=== PATIENT | female | born 1935 | race Caucasian/White ===

== ENCOUNTER → 2017-12-12 09:30 | Outpatient (CLI) | payer MEDICARE, OTHER, SELFPAY ==
--- NOTE | 2017-12-12 09:33 | BI_ITS ---
MAMMOGRAPHY - BILATERAL SCREENING REASON FOR EXAM: Female, 82 years old. Routine annual screening examination. PERTINENT HISTORY: Personal history of breast cancer. Prior right lumpectomy and radiation treatment. Grandmother with breast cancer. TECHNIQUE: Digital bilateral breast noe (3D mammographic acquisition) in the CC and MLO projections. 2-D mediolateral oblique (MLO) and craniocaudad (CC) views of both breasts were obtained. CAD: Full Field Digital Mammography with Computer Added Detection was performed. COMPARISON: Comparison is made with prior outside examination dated October 12, 2014. FINDINGS: Breast Composition: The breasts are heterogeneously dense, which may obscure small masses. There are no dominant masses or suspicious calcifications. Stable secretory calcifications. No other significant abnormalities are identified. There has been no significant change since the prior study. BI/SCREENING MAMM (CAD), BILAT IMPRESSION: Stable bilateral screening mammogram. Yearly follow-up mammogram recommended. (A) ASSESSMENT CATEGORY: BIRADS Category 2: Benign. A letter regarding these results will be sent to the patient by the facility within 30 days. Approximately 10% of breast cancers are not detected by mammography. A normal mammogram should not delay biopsy of a clinically suspicious abnormality. [id number] Electronically Signed: Sea Joshua MD at 14:47 EDT Tel [phone], Service support ,
--- NOTE | 2017-12-12 09:33 | BD_ITS ---
STUDY: DUAL ENERGY X-RAY ABSORPTIOMETRY / DXA REASON FOR EXAM: Female, 82 years old. The patient is postmenopausal. Loss of height. TECHNIQUE: Bone Mineral Density (BMD) measurements of lumbar spine and bilateral hips were obtained. COMPARISON: Comparison is made with prior examination dated February 02, 2015. FINDINGS: Lumbar Spine (L1-L4): g/cm2 (1.387) / T-score (1.9) / Z-score (3.7) Findings are suggestive of normal bone density with a low fracture risk. Increased thoracic kyphosis. Left Femur Total: g/cm2 (0.832) / T-score (-1.4) / Z-score (0.7) Left Femoral Neck: g/cm2 (0.746) / T-score (-2.1) / Z-score (0.1) Right Femur Total: g/cm2 (0.785) / T-score (-1.8) / Z-score (0.3) Right Femoral Neck: g/cm2 (0.778) / T-score (-1.9) / Z-score (0.3) The T-Scores on the most recent prior examination were: Lumbar Spine (L1-L4): There has been worsening of bone density since the previous examination. Left Femur Total: which represents a worsening of 2.8%. Right Femur Total: which represents a worsening of 5.5%. BD/Dexa Bone Density Study IMPRESSION: The patient is considered osteopenic as outlined below according to World Eliot Organization (WHO) criteria with a moderate fracture risk. There has been worsening of bone density since the previous examination. Reference Information: The T-score is the number of standard deviations above or below the standard which is normal for young adults at their peak bone mineral density. The World Health Organization (WHO) interprets the T-scores as follows: Above -1 Normal bone density Between -1 and -2.5 Osteopenia Equal to / or below -2.5 Osteoporosis As a practical clinical guideline, osteopenia may be graded as follows: Mild -1 through -1.5 Moderate -1.6 through -2.0 Severe -2.1 through -2.4 The Z-score is the number of standard deviations above or below age-matched controls. A Z-score of less than -1.5 would be considered abnormal. References: 1. NIH Osteoporosis and Related Bone Diseases http://www.osteo.org 2. International Society for Clinical Densitometry http://www.iscd.org 3. National Osteoporosis Foundation http://www.nof.org Electronically Signed: Sea Joshua MD at 9:08 EDT Tel [phone], Service support ,
== END ==
PROVIDERS: Family Provider Nurse Practitioner; PCP Nurse Practitioner; Referring Provider Nurse Practitioner; Visit Provider Nurse Practitioner
DX: Z12.31 Encounter for screening mammogram for malignant neoplasm of breast (principal); Z78.0 Asymptomatic menopausal state; M85.80 Other specified disorders of bone density and structure, unspecified site
CPT/HCPCS: 77063; 77067; 77080

== ENCOUNTER → 2018-05-15 11:04 | Outpatient (CLI) | payer MEDICARE, OTHER, SELFPAY ==
--- NOTE | 2018-05-15 11:09 | RAD_ITS ---
STUDY: X-RAY CHEST REASON FOR EXAM: Female, 82 years old. Cough. TECHNIQUE: PA and lateral views of the chest. COMPARISON: None. FINDINGS: The lungs are clear and expanded. There is no demonstrated pleural abnormality. There is borderline cardiomegaly. Normal mediastinum and tay. Normal visualized pulmonary arteries. There is atherosclerotic calcification of the aortic arch with tortuosity. There are diffuse degenerative changes of the visualized thoracic spine. Minimal dextroscoliosis. Normal visualized ribs, clavicles, and shoulders. There is no demonstrated abnormality of the visualized soft tissue structures of the upper abdomen. RAD/Chest PA and Lateral IMPRESSION: No acute abnormality is seen. Electronically Signed: Sea Joshua, at 12:26 EDT , Service support ,
== END ==
PROVIDERS: Family Provider Nurse Practitioner; PCP Nurse Practitioner; Referring Provider Nurse Practitioner; Visit Provider Nurse Practitioner
DX: R05 Cough (principal)
CPT/HCPCS: 71046

== ENCOUNTER → 2019-01-03 13:41 | Outpatient (CLI) | payer MEDICARE, OTHER, SELFPAY ==
--- NOTE | 2019-01-03 13:48 | RAD_ITS ---
STUDY: X-RAY - RIGHT KNEE REASON FOR EXAM: Female, 83 years old. Knee pain following a fall. TECHNIQUE: 4 view(s) of the knee. COMPARISON: None. FINDINGS: Normal visualized distal femur. Normal visualized proximal tibia and fibula. Normal proximal tibiofibular articulation. The patient is status post total knee replacement. There is good alignment. Small joint effusion. Prepatellar soft tissue swelling. RAD/Knee 4 or More Views IMPRESSION: Status post total knee replacement. There is good alignment. Joint effusion and soft tissue swelling. Electronically Signed: Sea Joshua, at 14:13 EST , Service support ,
--- NOTE | 2019-01-03 13:48 | RAD_ITS ---
STUDY: X-RAY - RIGHT ANKLE REASON FOR EXAM: Female, 83 years old. Lateral ankle swelling and pain following a fall. TECHNIQUE: 3 view(s) of the ankle. COMPARISON: None. FINDINGS: Normal visualized distal tibia and fibula. Normal medial and lateral malleoli. Normal tibiotalar articulation and ankle mortise. Plantar spur. The visualized subtalar, talonavicular, calcaneocuboid and tarsal articulations are normal. Lateral soft tissue swelling. RAD/Ankle min 3 Views IMPRESSION: Soft tissue swelling. Electronically Signed: Sea Joshua, at 14:14 EST , Service support ,
== END ==
PROVIDERS: Family Provider Nurse Practitioner; PCP Nurse Practitioner; Referring Provider Nurse Practitioner; Visit Provider Nurse Practitioner
DX: M25.561 Pain in right knee (principal)
CPT/HCPCS: 73564; 73610

== ENCOUNTER → 2019-03-07 15:20 | Outpatient (CLI) | payer MEDICARE, OTHER, SELFPAY ==
[2019-03-07 15:45] LABS: BNP,B-Type NATRIURETIC PEPTIDE 217.1 pg/mL (0-100)
== END ==
PROVIDERS: PCP Nurse Practitioner; Referring Provider Nurse Practitioner; Visit Provider Nurse Practitioner
DX: I51.7 Cardiomegaly (principal); R60.9 Edema, unspecified
CPT/HCPCS: 83880

== ENCOUNTER 2024-02-07 14:46 | Inpatient (IN) | payer MEDICARE, SELFPAY ==
[2024-02-07 15:08] VITALS: BP 162/80; PULSE 72; RESP 18; TEMP 36.6; O2SAT 95
[2024-02-07 15:17] VITALS: BMI 27.1
--- NOTE | 2024-02-07 16:30 | HP.PCM_ITS ---
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 Family reported that she had been out of Eliquis for 7 to 10 days because she had not filled her prescription. NIHSS was 12 at admission and CTA showed a left MCA M1 occlusion. She was given TNK in the emergency department and then transferred to [facility] where she underwent a thrombectomy per interventional neurology. NIHSS at presentation to [facility] was 7. CT scan of the head on 02/01/2024 showed focal areas of hyperintensity seen measuring up to 1.9 x 1.3 x 1.6 cm in the caudate head 2.1 x 1.1 x 2.2 cm in the lentiform nucleus. There was mild surrounding vasogenic edema concerning for intraparenchymal hemorrhage. There is no significant midline shift. Echocardiogram showed a normal-sized left ventricle with mild septal thickening. Findings were consistent with mild asymmetric hypertrophy. EF was 69% and wall motion abnormality was normal. Right ventricle was normal in size and had normal systolic function. There was mild to moderate aortic valve regurgitation with no stenosis. There was mild to moderate mitral regurgitation with no stenosis. There was mild tricuspid regurgitation with a elevated right-sided systolic pressure of 43. The left atrium was moderately dilated and the right atrium was mildly dilated. CT scan of the head on 02/02/2024 showed marginally increased intraparenchymal hemorrhages of the left frontal lobe with surrounding edema. Repeat CT 1 day later showed a stable to marginally decreased intraparenchymal hemorrhage in the left frontal lobe. Sodium dropped to 127 during her admission at [facility] and nephrology was consulted. Right-sided weakness got worse with the drop in sodium. Cerebral edema increased. She was given a 500 cc bolus of 3% hypertonic sodium chloride and started on a normal saline infusion at 75 cc/h following the 3% saline bolus. 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 She was then placed on a 1500 cc fluid restriction. Sodium continued to be low and on 02/05/2024 the fluid restriction was decreased to 1200 cc daily. She was also started on salt tablets 1 g p.o. 3 times daily. Lab on 02/06/2024 showed a hemoglobin of 11.4, normal platelets. Sodium was 129 and nursing tells me that today the sodium was 135. Creatinine on 02/06/2024 was stable at 0.69 with a BUN of 22. Male who was transferred to the acute inpatient rehab unit at [facility] on 02/07/2024 for 3 hours of therapy daily to restore function/independence at or near her level prior to the recent embolic stroke. After reviewing the notes we received from [facility] the Eliquis is to be resumed 1 month after the stroke, 03/02/2024. She came to us on Keflex and nursing reported that it was for a swollen right hand. There is no mention of cellulitis in the notes. No family is present in the room when I am speaking with her. Hx is limited due to severe expressive aphasia. [facility] Medical History Osteoarthritis Atrial enlargement, bilateral GERD (gastroesophageal reflux disease) Hyperlipidemia HTN (hypertension) History of breast cancer in female Chronic anticoagulation Atrial fibrillation Home Medications ?Medication ?Instructions ?Recorded ?Last Taken ?Type aspirin 81 mg chewable tablet 81 mg PO DAILY Heart health 02/07/24 Unknown History atenolol 25 mg tablet 25 mg PO BID BP 02/07/24 Unknown History atorvastatin 40 mg tablet 40 mg PO DAILY Cholestrol 02/07/24 02/07/24 History cephalexin 500 mg capsule 500 mg PO Q8H Antibiotic 02/07/24 02/07/24 History diltiazem HCl 60 mg tablet 60 mg PO Q6H BP 02/07/24 02/07/24 12:10 History (Cardizem) losartan 50 mg tablet (Cozaar) 50 mg PO DAILY BP 02/07/24 02/07/24 History pantoprazole 40 mg tablet,delayed 40 mg PO DAILY GERD 02/07/24 02/07/24 History release Allergy/AdvReac Type Severity Reaction Status Date / Time docetaxel AdvReac Severe Severe Verified 02/07/24 16:50 body spasms and rash lisinopril AdvReac Mild cough Verified 02/07/24 16:50 Family History unable to obtain unable to obtain (Will discuss with family when available) Surgical History unable to obtain unable to obtain Social History household members: family and other details: Her daughter lives lives with her. number of children: 6 Smoking Status: Never smoker alcohol intake: never ROS ROS Narrative Review of systems is severely limited by severe aphasia. She denied having pain. She also denies shortness of breath, headache, lightheadedness, abdominal pain, dysuria and nausea. Appetite is decreased and she tried to tell me why and then just got frustrated. Review of Systems ROS Unobtainable: due to mental status Vital Signs Vital Signs Vital Signs: Weight Weight: 162 lb 12.8 oz Body Mass Index (BMI) 27.1 Indicators for Scoring Admitted with or Primary Diagnosis of CVA/Stroke: Yes Hx of CVA/Stroke: Yes Modified Tunde Score MRS Score at time of Evaluation: 4-Moderate/severe disability NIHSS NIHSS 1a. Level of Consciousness: Alert; keenly responsive 1b. LOC Questions: Answers one question correctly. (Got that it was January but told me that she is 41) 1c. LOC Commands: Performs both tasks correctly. 2. Best Gaze: Normal 3. Visual: No visual loss 4. Facial Palsy: Minor paralysis (flattened nasolabial fold, asymmetry on smiling) (very mild R facial droop) 5a. Left Arm: No drift; arm holds 90 (or 45) degrees for full 10 seconds 5b. Right Arm: No drift; arm holds 90 (or 45) degrees for full 10 seconds 6a. Left Leg: No drift; leg holds 30-degree position for full 5 seconds 6b. Right Leg: No drift; leg holds 30-degree position for full 5 seconds 7. Limb Ataxia: Absent 8. Sensory: [id number] sensory loss; 9. Best Language: Severe aphasia; 10. Dysarthria: [id number] dysarthria; 11. Extinction and Inattention: No abnormality Total: 6 Stroke Questions Stroke Team Activated: No Physical Exam Const alert Constitutional Narrative: She is oriented to person. She cannot tell me where she is or what year it is. She initially told me it was January but then said February and December later on in the interview. She thinks she is still in [place]. She seems frustrated at not being able to say what she wants to say. General Appearance: cooperative HEENT normocephalic and head/scalp atraumatic HEENT Narrative: Very mild right facial droop. Eyes PERRL, EOMs intact bilaterally, conjunctivae normal and no scleral icterus Eyes Narrative: No discharge from the eyes and no mattering of the eyelashes. No visual field cuts. Neck supple, No nodes and no carotid bruits General: trachea midline Chest Chest: symmetrical chest wall rise Resp normal respiratory effort, normal air movement, no use of accessory muscles and clear to auscultation bilaterally Resp Narrative: Not tachypneic and respiration is not labored. Effort and Inspection: symmetric chest movement Cardio no gallops Cardio Narrative: Irregular irregular rhythm. Widely split S1 but physiologic. No murmur detected. No rub. GI normal to inspection, nondistended, normoactive bowel sounds, soft to palpation and non-tender GI Narrative: No guarding with palpation. No abdominal bruits. Extremity no calf tenderness and no pedal edema Extremity Narrative: No clubbing and no cyanosis. There appears to be some bruising on the dorsum of the right hand but there is no opening in the skin, no discharge and no increased warmth to touch when compared to the left hand. She does have arthritic changes of both hands. No peripheral edema. Skin no jaundice and no mottling Skin Narrative: Skin is very dry. No rashes. Denies pruritus. There is some fairly extensive bruising of the right groin secondary to interventional radiology performing thrombectomy. She denies pain in the right groin. No hematoma. Neuro Neuro Narrative: She is oriented to person. Pupils are equal and reactive to light and accommodation. Extraocular muscles are intact. She was able to tell me initially that it was January but then she said February and December. She cannot tell me the year. When I asked her the year she keeps telling me different months. She cannot tell me where she is. She has a very mild right facial droop. No visual field cuts. She has no drift with any of her extremities. There is no ataxia. No tactile or visual extinction. She was able to name 2 objects but could not name the other 4. She was able to tell me a little of what was going on in the picture I showed her. She was able to say a few of the words I showed her but could not say the others. She has dysarthria but was able to say mama and tiptop fairly clearly. She was able to read a few of the sentences and not the others. When checking sensation she felt me touch her with a pin but, was unable to tell me if 1 side felt sharper than the other. Psych cooperative Psych Narrative: Seems frustrated that she cannot get her words out. She was cooperative and engaged in interacting with me. She was not restless or fidgety. Results Lab / Micro Data 02/08/24 04:44 02/08/24 04:44 Assessment & Plan Assessment/Plan (1) Debility: (2) Embolic stroke: QUALIFIERS: Precerebral and cerebral artery: middle cerebral artery Laterality of affected vessel: left Qualified Code(s): I63.412 - Cerebral infarction due to embolism of left middle cerebral artery (3) History of thrombectomy: (4) Severe aphasia: (5) Dysarthria: (6) Atrial fibrillation: QUALIFIERS: Atrial fibrillation type: longstanding persistent Q ualified Code(s): I48.11 - Longstanding persistent atrial fibrillation (7) Chronic anticoagulation: (8) Noncompliance with medication regimen: PLAN: Noncompliant with Eliquis (9) HTN (hypertension): QUALIFIERS: Hypertension type: primary hypertension Qualified Code(s): I10 - Essential (primary) hypertension (10) Hyperlipidemia: QUALIFIERS: Hyperlipidemia type: unspecified Qualified Code(s): E 78.5 - Hyperlipidemia, unspecified (11) Hyponatremia: PLAN: 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 On fluid restriction and was on salt tabs but, this was apparently [facility] at [facility] from the [facility] hospital. (12) Atrial enlargement, bilateral: (13) Mild pulmonary hypertension: (14) GERD (gastroesophageal reflux disease): QUALIFIERS: Esophagitis presence: esophagitis presence not specified Qualified Code(s): K21.9 - Gastro-esophageal reflux disease without esophagitis (15) History of breast cancer in female: PLAN: Plan PLAN PT for gait stability OT for ADL's ST for evaluation Analgesics as needed Bowel protocol Fall precautions Assess for Anxiety/Depression GI prophylaxis -not ordered on the transfer orders. Will continue to observe. DVT prophylaxis with SCDs and GWENDOLYN lepe Follow up with PCP, neurology, cardiology following DC from [facility] AM lab including CMP, CBC, Mag and Phos-ordered Will need to clarify hx with family. 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 There are many psycho-social issues that need to be clarified. Charges/Coding Visit Charges Inpatient E&M: 60387 Init Hosp L3
[2024-02-07 18:00] VITALS: BP 162/80; PULSE 72; RESP 18; TEMP 36.6; O2SAT 95
[2024-02-07] MEDS: Cephalexin 500 MG Capsule PO ×2 (18:50→23:44)
[2024-02-07] MEDS: dilTIAZem 60 MG Tablet PO ×2 (18:50→23:41)
[2024-02-07 22:00] VITALS: O2SAT 94
[2024-02-07] MEDS: Senna/Docusate Sodium 1 Tablet 2 TABLET PO (22:01)
[2024-02-07] MEDS: Atenolol 25 MG Tablet PO (22:01)
[2024-02-08 00:16] LABS: Bacteria 0 SEEN /hpf (None Seen); Mucous, Urine 0 SEEN /hpf (<or=2+); White Blood Cells 0 SEEN /hpf (0-5)
[2024-02-08 00:20] LABS: Color, Urine Yellow (Yellow); Glucose, Dipstick Normal (Normal); Ketone-Dipstick Negative (Negative); Leukocyte Esterase-Dipstick Negative /ul (Negative); Nitrite-Dipstick Negative (Negative); Occult Blood-Urine 25 /ul (Negative); Protein-Dipstick 100 mg/dl (Negative); Urine Bilirubin Dipstick Negative (Negative); Urine Clarity Clear (Clear); Urine Urobilinogen Normal (Normal)
[2024-02-08 00:31] LABS: Red Blood Cells-Urine 5-10 SEEN /hpf (0-5); Squamous Epithelial Cells - UA 0-5 SEEN /hpf (5-10)
[2024-02-08] MEDS: Magnesium Hydroxide 30 ML UDC PO (05:12)
[2024-02-08] MEDS: Cephalexin 500 MG Capsule PO (05:12)
[2024-02-08] MEDS: dilTIAZem 60 MG Tablet PO ×3 (05:12→18:10)
[2024-02-08 05:23] LABS: Absolute Lymphocyte Count 1.46 X10^3/uL (0.83-4.51); Absolute Neutrophil Count 7.2 X10^3/uL (2.0-7.7); Basophil# 0.05 X10^3/uL; Basophil% 0.5 % (0-1); Eosinophil# 0.04 X10^3/uL; Eosinophils% 0.4 % (0-5); Hematocrit 30.6 % (37-47); Hemoglobin 10.1 g/dL (12.0-15.0); Lymphocyte # 1.46 X10^3/ul (0.83-4.51); Lymphocyte % 15.1 % (19-41); Mean Corpuscular Hgb 29.9 pg (27.0-32.0); Mean Corpuscular Volume 90.5 fL (81-99); Mean Platelet Vol. 10.9 fl (6.2-12.0); Monocyte% 9.3 % (0-10); NRBC Flagged by Analyzer 0 % (0-5); Neutrophil # 7.17 X10^3/uL (2.7-7.7); Neutrophil % 74.1 % (47-70); POSITIVE COUNT YES; Platelet Count 270 K/mm3 (150-450); RBC Distribution Width CV 14.6 % (11.6-14.6); RBC Distribution Width SD 48.6 fl (35.1-43.9); Red Blood Count 3.38 M/mm3 (4.2-5.4); White Blood Count 9.7 K/mm3 (4.4-11.0)
[2024-02-08 05:24] LABS: Differential Indicated SCAN CRITERIA MET
[2024-02-08 05:48] LABS: ALB/GLOB Ratio 0.6 RATIO (0.9-2.4); AST(SGOT) 17 U/L (15-37); Alanine Aminotransfer ALT/SGPT 33 U/L (13-56); Albumin, Serum 2.6 g/dL (3.2-5.0); Alkaline Phosphatase 107 U/L (45-117); Anion Gap 6 (5-15); BUN 17 mg/dL (7-18); BUN/Creat Ratio 32.8 RATIO (10-20); Calcium,Total 9.3 mg/dL (8.5-10.1); Chloride 104 mmol/L (98-107); Creatinine, Serum 0.52 mg/dL (0.55-1.02); EST Glomerular Filtration Rate 119 mL/min (>60); Est Glom Filt Rate - Afr Amer 144 mL/min (>60); Estimated Creatinine Clearance 49.85 ml/min; Globulin 4.2 g/dL (2.2-4.2); Glucose 128 mg/dL (74-106); Magnesium 1.8 mg/dL (1.6-2.6); Phosphorus 2.4 mg/dL (2.5-4.9); Potassium 3.1 mmol/L (3.5-5.1); Protein, Total 6.8 g/dL (6.4-8.2); Sodium Level 136 mmol/L (136-145)
[2024-02-08 06:00] VITALS: BP 161/63; PULSE 98; RESP 24; TEMP 37.6; O2SAT 93; BMI 22.6
[2024-02-08 06:14] LABS: Differential Comment SCANNED; Platelet Estimate ADEQUATE (ADEQ); Red Cell Morphology NORM C+C NORMAL (NORM C&C)
[2024-02-08] MEDS: Pantoprazole Sodium 40 MG Tablet PO (09:20)
[2024-02-08] MEDS: Senna/Docusate Sodium 1 Tablet 2 TABLET PO ×2 (09:20→21:04)
[2024-02-08] MEDS: Atorvastatin Calcium 40 MG Tablet PO (09:20)
[2024-02-08] MEDS: Atenolol 25 MG Tablet PO ×2 (09:20→21:04)
[2024-02-08] MEDS: Losartan Potassium 50 MG Tablet PO (09:21)
[2024-02-08] MEDS: Aspirin 81 MG TAB.CHEW PO (09:21)
--- NOTE | 2024-02-08 09:42 | REHABEVAL_ITS ---
Admission Information Primary Diagnosis:: Post stroke debility Status Changes from Prescreening?: No changes Identified Actual Problem List:: Cognitve Impr/Memory Loss, Depression, Bladder Incontinence, Bowel, Incontinence, Alteration in Sleep, Alteration in Nutrition, Mobility Impaired, Self Care Deficit, Know.Dfct/Disease Process, Know.Dfct of Medicaitons, BP, Hypertension and Alteration-Leisure Activ. Potential Problem List:: DVT, Bleeding, Infection, UTI, Aspiration, Falls, Skin Integrity and Depression Risk of Complications DVT: GWENDOLYN Hose and Sequential Compression Device Bleeding: Monitor Lab Values, Nursing to Teach Precautions for anti-coagulation therapy., Wound, if applicable, to be assessed every shift. and Stroke patients assessed for lethargy or change in status. Infection: Clinical Staff to Monitor for S/S of infection: and S/S of infection include fever, redness, warmth, etc. Urinary Tract Infection: Monitor for frequency, burning, discomfort, or incontinence. and Nursing will obtain urine sample for urinalysis and C&S when ordered. Aspiration: Clinical staff will monitor for coughing, drooling, congestion., Speech will evaluate swallowing and dsyphasia. and Nursing will monitor patient swallowing during meals. Falls: Patient will be evaluated for Fall Precautions and Patient will be placed on Fall Precautions as indicated per protocol. Skin Breakdown: Nursing will assess skin daily using assessment tool. and Nursing will place on Skin Breakdown Precautions as indicated. Pain: Clinical staff will assess patient's pain level per protocol., Medications will be given, if needed, and the pain level reassessed. and Other methods: Massage, distraction, decrease stimulus, etc. used PRN. Plan of Care Patient requires physician specializing in physical medicine and rehab oversight to provide close medical supervision of rehab issues including: Pain Management, Sleep Problems, Bowel and Bladder, Medical and co-morbidity Management, DVT prophylaxis, Rehabilitation Leadership and Coordination of treatment team Patient needs Physical Therapy: For a minimum of 1 hour and At least 5 out of 7 days Patient needs Physical Therapy to improve:: Mobility, Strengthening, Transfers, Stretching, ROM, Endurance, Stairs, Gait and Balance Patient needs Occupational Therapy: For a minimum of 1 hour and At least 5 out of 7 days Patient needs Occupational Therapy to improve ADL's incl.: Eating, Grooming, Bathing, Dressing, Toileting, Toilet transfers, Community Reintegration, Higher functioning activities, Household tasks, Adaptive Equipment, Splinting and Other activities as determined Patient requires speech therapy: For a minimum of 1 hour and At least 5 out of 7 days Patient requires speech therapy for: Swallowing, Cognition, Language Skills and Compensatory Strategies Patient requires 24/7 Rehabilitation Nursing for: Pain Issues, Identifying and preventing risk factors, Monitoring and reporting current medical conditions, Assisting with ambulation, transfer, and all ADL's, Teaching patients about di sease process and medications, Family teaching, Providing safe environment, Bowel and Bladder Issues, Skin integrity and Medication Management Patient needs Switch Foreman/ Case Management for: Discharge Planning, Arranging Home Equipment or Services and Family Interventions Patient needs Dietary and Nutrition Services for: Adequate Nutrition, Nutri tional Supplements and Nutritional Education Goals Goals Patient will complete transfers from bed to chair at: Standby Assist. Patient will ambulate: - (165 feet with least restrictive device at standby assist on various surfaces) Patient will complete upper body dressing at: - (Supervision) Patient will complete lower body dressing at: - (Supervision with adaptive equipment as needed) Patient will complete toilet transfer at: - (Supervision) Patient will complete toileting at: - (Supervision) Patient will perform bathing at: - (Upper body bathing independently and lower body bathing at supervision with adaptive equipment as needed) Patient will perform Tub/Shower transfer at: - (Supervision) Patient will complete grooming at: - (Supervision while standing at the sink) Patient will complete home management skills at: - (Supervision) Patient will achieve: - (2 steps with least restrictive device at standby assist) Patient will have pain level of: of 3 or less Patient's skin will: remain intact Patient will receive: adequate nutrition. Discharge Planning Pt Prognosis for Sig. Practical Improv. w/in Reasonable Time: Good Estimated Length of stay (days): 28 Anticipated D/C Destination: Home with Outpt Therapy (Will need assistance from family and 11/09 supervision at discharge. No driving. Family for medication and financial reporting consultant.) Was Preadmission Assessment Accurate?: Yes
--- NOTE | 2024-02-08 09:43 | PCM.PROGNOTE ---
Subjective Subjective Temp today is 99.6. UA was negative yesterday. VSS - Maintaining appropriate oxygen saturation on RA Oral intake - FOOD poor FLUIDS poor Discussed with nursing - no problems that need addressed Reviewed the THERAPY notes Medication list reviewed. All lab from today was personally reviewed. White blood cell count is normal at 9.7. Hemoglobin is 10.1 and platelets are within normal limits. MCV and MCH are both normal. Sodium is 136 and the potassium is low at 3.1. BUN is 17 with a creatinine of 0.52 and a BUN/creatinine ratio of 32.8. Fasting blood sugar is elevated at 128. Phosphorus is low at 2.4 and magnesium is 1.8. LFTs are normal. Urine had 0 WBCs. I was able to talk with daughter Marcela today. She tells me that her mother was very active prior to the stroke. She drives and she was independent with all activities of daily living. She was managing her own medications. There are 3 or 4 steps to enter the house and she is unsure if whether there is 1 or 2 handrails. She will check on this and get back to us. There is a bedroom on the first floor of the house where she can stay and there is a bathroom. She has a walk-in shower and Marcela is unsure whether there are grab bars or not. She sometimes walks without an assistive device but at other times uses a cane, especially if her hip is hurting. There seems to be some confusion over whether or not she was taking Eliquis. Dtr Yolanda told the ED doc that her mother was not on Eliquis. Yolanda told Marcela she should not be taking Eliquis and has been talking about holistic medicine. She tole someone that she was on enough Eliquis for a 250 lb man? 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 She picked it up several days later but is unclear if if she started taking it. Yolanda lives with Marika. Marika has 6 children. Yolanda has quite a hx of run ins with the law and has been in long-term. She is a regular user of marijuana and I am suspicious that she has an undiagnosed mental health disorder. We have been instructed not to give Yolanda and information about her mother. Marcela is the primary contact. Marcela tells me that her mother asked her within the past year if Yolanda was bipolar. There is no hx of BPD in the family. There is a cousin who was addicted to drugs and in trouble with the law. Denies SOB today. Marcela reports that a few days ago at the other hospital she was feeding her mother when she started choking/coughing and she spit up what she had just eaten. After that she was transitioned to a minced and moist diet. Objective Data Objective Data Vital Signs: Vital Signs Temp Pulse Resp BP Pulse Ox O2 Del Method 99.6 F H 98 24 H 161/63 H 93 Room Air 02/08/24 06:00 02/08/24 06:00 02/08/24 06:00 02/08/24 06:00 02/08/24 06:00 02/08/24 06:00 Oxygen Delivery Method Room Air Weight: 162 lb 12.8 oz Body Mass Index (BMI) 27.1 Intake & Output: Intake and Output for Last 24 Hours 02/06/24 02/07/24 02/08/24 23:59 23:59 23:59 Intake Total 240 / 240 135 / 135 Output Total 0 / 0 250 / 250 Balance 240 / 240 -115 / -115 Lab / Micro Data 02/08/24 04:44 02/08/24 04:44 Labs: Laboratory Results - last 24 hr 02/08/24 00:05: Urine Color Yellow, Urine Clarity Clear, Urine pH 6.0, Ur Specific Buckeye 1.020, Urine Protein 100 H, Urine Glucose (UA) Normal, Urine Ketones Negative, Urine Occult Blood 25 H, Urine Nitrite Negative, Urine Bilirubin Negative, Urine Urobilinogen Normal, Ur Leukocyte Esterase Negative, Urine RBC 5-10 SEEN, Urine WBC 0 SEEN, Ur Squamous Epith Cells 0-5 SEEN, Urine Bacteria 0 SEEN, Urine Mucus 0 SEEN 02/08/24 04:44: WBC 9.7, RBC 3.38 L, Hgb 10.1 L, Hct 30.6 L, MCV 90.5, MCH 29.9, MCHC 33.0, RDW Std Deviation 48.6 H, RDW Coeff of Jt 14.6, Plt Count 270, MPV 10.9, Immature Gran % (Auto) 0.600, Neut % (Auto) 74.1 H, Lymph % (Auto) 15.1 L, [place] % (Auto) 9.3, Eos % (Auto) 0.4, Baso % (Auto) 0.5, Absolute Neuts (auto) 7.2, Absolute Lymphs (auto) 1.46, Nucleated RBC % 0, Differential Comment SCANNED, Platelet Estimate ADEQUATE, RBC Morphology NORM C+C, Sodium 136, Potassium 3.1 L, Chloride 104, Carbon Dioxide 25.0, Anion Gap 6, BUN 17, Creatinine 0.52 L, Estim Creat Clear Calc 49.85, Est GFR (MDRD) Af Amer 144, Est GFR (MDRD) Non-Af 119, BUN/Creatinine Ratio 32.8 H, Glucose 128 H, Calcium 9.3, Phosphorus 2.4 L, Magnesium 1.8, Total Bilirubin 0.70, AST 17, ALT 33, Alkaline Phosphatase 107, Total Protein 6.8, Albumin 2.6 L, Globulin 4.2, Albumin/Globulin Ratio 0.6 L Physical Exam Narrative More alert today. Answering questions appropriately with yes and no. Denies chest pain. Const alert Resp Resp Narrative: Better able to cooperate with exam today. She was able to give me some deep breaths. She has coarse crackles in the right base today. No wheezing. Breath sounds in the right base last night were very diminished but clear. She is not tachypneic and has no labored respirations. Cardio Cardio Narrative: Irregular irregular rhythm with controlled ventricular response GI normal to inspection, nondistended, normoactive bowel sounds, soft to palpation and non-tender GI Narrative: No guarding with palpation Extremity no calf tenderness General Extremity: Negative for edema Skin Rashes: no rashes Assessment & Plan Assessment/Plan (1) Debility: (2) Embolic stroke: QUALIFIERS: Precerebral and cerebral artery: middle cerebral artery Laterality of affected vessel: left Qualified Code(s): I63.412 - Cerebral infarction due to embolism of left middle cerebral artery (3) History of thrombectomy: (4) Severe aphasia: (5) Dysarthria: (6) Atrial fibrillation: QUALIFIERS: Atrial fibrillation type: longstanding persistent Qualified Code(s): I48.11 - Longstanding persistent atrial fibrillation (7) Chronic anticoagulation: (8) Noncompliance with medication regimen: PLAN: Noncompliant with Eliquis (9) HTN (hypertension): QUALIFIERS: Hypertension type: primary hypertension Qualified Code(s): I10 - Essential (primary) hypertension (10) Hyperlipidemia: QUALIFIERS: Hyperlipidemia type: unspecified Qualified Code(s): E78.5 - Hyperlipidemia, unspecified (11) Hyponatremia: PLAN: 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 On fluid restriction and was on salt tabs but, this was apparently discontinued at [facility] from the previous hospital. (12) Aspiration pneumonia: QUALIFIERS: Aspiration pneumonia type: unspecified Laterality: right Lung location: lower lobe of lung Qualified Code(s): J69.0 - Pneumonitis due to inhalation of food and vomit PLAN: Plan 1. Continue therapy 2. PA and lateral chest x-ray today 3. Supplement potassium 4. Start Remeron 7.5 mg nightly 5. Tylenol 650 mg every 4 hours as needed pain/fever 6. Recheck a BMP and magnesium on Sunday 7. Add hydralazine 10 mg p.o. every 4 hours as needed systolic greater than 170 or diastolic greater than 85. 8. Start meropenem 1 g IV every 8 hours and vancomycin, pharmacy to dose. 9. Blood culture, sputum culture 10. Discussed with speech therapy -will likely need either a modified barium swallow or fees to evaluate for possible silent aspiration I discussed with Marcela that since her mother had hemorrhagic transformation of the embolic CVA that neurology felt she should not be on Eliquis for 1 month after the stroke. This puts her at risk for additional strokes. Charges/Coding Visit Charges Inpatient E&M: 18416 Subs Hosp L2
[2024-02-08] MEDS: Menthol/Lanolin/Calamine/Znox 113 GM Tube 1 APPLIC TOPICAL ×2 (09:46→21:08)
[2024-02-08 10:00] VITALS: O2SAT 94
--- NOTE | 2024-02-08 10:10 | RAD_ITS ---
STUDY: X-RAY CHEST REASON FOR EXAM: Female, 88 years old. Fever/cough TECHNIQUE: Frontal and lateral views of the chest. COMPARISON: May 15, 2018 FINDINGS: There is mild lower lung atelectasis. There is no demonstrated pleural abnormality. There is mild cardiac enlargement. Normal mediastinum and tay. Normal visualized pulmonary arteries. There is atherosclerotic calcification of the aortic arch with tortuosity. There is demineralization of the osseous structures. There is degenerative change of the spine and right shoulder. There are compression fractures of the spine. There is no demonstrated abnormality of the visualized soft tissue structures of the upper abdomen. RAD/Chest PA and Lateral IMPRESSION: Degenerative changes, as described above. No demonstrated acute cardiopulmonary process. Electronically Signed: Rogers Olivo MD at 10:57 EST ,
[2024-02-08] MEDS: Potassium Chloride Oral Tablet 20 MEQ PO ×3 (10:52→18:11)
--- NOTE | 2024-02-08 10:56 | CASEMGMT ---
Social Work SW attempted to meet with pt to complete initial assessment. Pt is not alert and oriented and could not answer questions. SW to phone dtrMarcela. Nursing updated this worker that dtr, Marcela, has set up a password for family to use to get information, as they are family dynamics. Registration updated and added VIP note. Basilia Mcfarlane, MOTORBOAT MECHANIC AUTOMOTIVE ELECTRICAL HELPER
[2024-02-08] MEDS: Vancomycin IV 1,000 MG/200 ML BAG 200 MG IV (12:19)
--- NOTE | 2024-02-08 12:51 | PCM.RX.CS ---
Consult Antibiotic Management Pharmacy has been consulted to manage selected antibiotic: Vancomycin Type of Intervention Type of Consult: New start Labs Labs: Sodium 136 mmol/L (136-145) 02/08/24 04:44 Potassium 3.1 mmol/L (3.5-5.1) L 02/08/24 04:44 Chloride 104 mmol/L (98-107) 02/08/24 04:44 Carbon Dioxide 25.0 mmol/L (21.0-32.0) 02/08/24 04:44 Anion Gap 6 (5-15) 02/08/24 04:44 BUN 17 mg/dL (7-18) 02/08/24 04:44 Creatinine 0.52 mg/dL (0.55-1.02) L 02/08/24 04:44 Est GFR (MDRD) Af Amer 144 mL/min (>60) 02/08/24 04:44 Est GFR (MDRD) Non-Af 119 mL/min (>60) 02/08/24 04:44 BUN/Creatinine Ratio 32.8 RATIO (10-20) H 02/08/24 04:44 Glucose 128 mg/dL (74-106) H 02/08/24 04:44 Dosing Weight Weight used for dosin.8 kg Estimated Creatinine Clearance Estimated Creatinine Clearance: 49 ML/MIN Goal Trough Goal Trough: 10-15 mcg/mL Pharmacy Plan for Drug Dosing Pharmacy Plan for Drug Dosing: Give initial standard dose of 1000mg IV x1, then continue with 1000mg IV q24h. Check a trough before the 3rd dose. Pharmacy Service will continue to monitor and adjust dosing as required. Follow-Up Labs Follow-Up Labs: Trough: Vancomycin Date/Time Labs Ordered Labs to be done on [date and time ordered]: 02/10/24 11:30
[2024-02-08] MEDS: Meropenem 1 GM in 0.9% Normal Saline (100mL MB+) 100 ML IV ×2 (13:24→21:13)
[2024-02-08] MEDS: 0.9% Saline Lock 10 ML Syringe IV ×2 (13:24→21:02)
--- NOTE | 2024-02-08 15:55 | CASEMGMT ---
Social Work SW phoned dtr, Marcela, to complete initial assessment. Introduced self and role. Verified/updated contacts. Confirmed pt's password in noted in her chart to release information to family members with the password. SW inquired about code status. Dtr requests pt be a DNR-CCA, no intubation, per pt's wishes prior to CVA. Dtr has provided copies of pt's advanced directives - placed on chart. SW educated to Medicare benefit and Team meeting. SW inquired about family dynamics to ensure pt's safety during stay and for DC planning. Dtr explained history and corroborated notes from [facility] DESKTOP SUPPORT SPECIALIST and public records about dtr, Yolanda. SW learned that pt dtr, Yolanda, has a history of being a medical physician and lost license d/t illegal activities, and had other criminal charges on a personal level. Yolanda moved to [place], and began living with the pt. There have been reports [facility] DESKTOP SUPPORT SPECIALIST and corroborated by dtr, Marcela, the Yolanda withheld pt?s, now , ?s medications while in was in hospice care. There are current concerns about Yolanda not picking up pt?s Eliquis from the pharmacy in a timely manner prior to the hospitalization for CVA. Pt's dtr Marcela, expresses concern about Yolanda?s involved in pts care during stay. SW conferred with treatment team, and it was determined that staff will attempt to have visits between Yolanda and pt held in common space. Based on these concerns and history of poor judgement, treatment team want to ensure pt's safety and well-being during stay. ?D/T pts change in ability to communicate, staff will observe visits to ensure no distress of the pt. Treatment team will continue to evaluate situation. Marcela is aware and agreeable to monitor pt's well-being during visits with Yolanda, and visits can be altered, if needed. Dtr appreciative of time and assistance. SW will continue to follow for DC planning. Basilia Mcfarlane, CHRISTINA DESKTOP SUPPORT SPECIALIST
[2024-02-08 18:00] VITALS: BP 154/68; PULSE 93; RESP 16; TEMP 37; O2SAT 92
[2024-02-08] MEDS: Ensure Plus High Protein 120 ML LIQUID PO (18:35)
[2024-02-08 21:00] VITALS: BP 146/61; PULSE 89
[2024-02-08] MEDS: Mirtazapine 15 MG Tablet 7.5 MG PO (21:03)
[2024-02-08] MEDS: Sodium Chloride 1 GM Tablet PO (21:04)
[2024-02-09] MEDS: dilTIAZem 60 MG Tablet PO ×4 (00:14→19:47)
[2024-02-09 06:00] VITALS: BP 156/64; PULSE 92; RESP 14; TEMP 37.4
[2024-02-09 08:12] VITALS: RESP 16
[2024-02-09] MEDS: Losartan Potassium 50 MG Tablet PO ×2 (08:41→12:25)
[2024-02-09] MEDS: Aspirin 81 MG TAB.CHEW PO (08:43)
[2024-02-09] MEDS: Ensure Plus High Protein 120 ML LIQUID PO (08:45)
[2024-02-09] MEDS: 0.9% Saline Lock 10 ML Syringe IV ×3 (11:04→22:32)
[2024-02-09] MEDS: Meropenem 1 GM in 0.9% Normal Saline (100mL MB+) 100 ML IV ×2 (11:42→22:33)
--- NOTE | 2024-02-09 12:02 | PCM.PROGNOTE ---
Subjective Subjective Day #2 vancomycin and Merrem for aspiration pneumonia Temp this a.m. was 99.4 VSS -systolic blood pressure is not at goal and has ranged from 1 46-1 61 over the past 24 hours. Heart rate is within normal limits. Diastolics are always at goal. Maintaining appropriate oxygen saturation on RA. Not tachypneic. Oral intake - FOOD poor. Has been started on Remeron. The turn down attendant is providing supplements. FLUIDS she was able to take 995 cc orally yesterday and an additional 120 IV. Discussed with nursing - no problems that need addressed. Nursing reports that she slept well last night. Continues to be incontinent. She had 2 postvoid residuals yesterday 1 was 0 and the other was 184. Reviewed the THERAPY notes Medication list reviewed. Respiratory panel is negative. Objective Data Objective Data Vital Signs: Vital Signs Temp Pulse Resp BP Pulse Ox O2 Del Method 99.4 F H 92 16 156/64 H 92 Room Air 02/09/24 06:00 02/09/24 06:00 02/09/24 08:12 02/09/24 06:00 02/08/24 18:00 02/09/24 08:38 Oxygen Delivery Method Room Air Weight: 162 lb 12.806 oz Body Mass Index (BMI) 22.6 Intake & Output: Intake and Output for Last 24 Hours 02/07/24 02/08/24 02/09/24 23:59 23:59 23:59 Intake Total 240 / 240 1315 / 1315 120 / 120 Output Total 0 / 0 250 / 250 Balance 240 / 240 1065 / 1065 120 / 120 Lab / Micro Data 02/08/24 04:44 02/08/24 04:44 Micro: Microbiology 02/08/24 12:43 Mucosa - Nose Respiratory Panel (PCR) - Final Physical Exam Const alert Constitutional Narrative: Gets frustrated easily when she cannot make us understand what she wants. Not really restless. She has cooperated with therapy and seems very motivated to get better. Resp Resp Narrative: Coarse crackles in the right base. Not coughing. No wheezing. Not tachypneic. Respirations are not labored. Normal respiratory effort. Cardio Cardio Narrative: Irregular irregular rhythm with controlled ventricular response. She is on Cardizem and atenolol. GI normal to inspection, nondistended, normoactive bowel sounds, soft to palpation and non-tender GI Narrative: No guarding with palpation. Having regular bowel movements. Incontinence of stool. Extremity General Extremity: Negative for edema Assessment & Plan Assessment/Plan (1) Debility: (2) Embolic stroke: QUALIFIERS: Precerebral and cerebral artery: middle cerebral artery Laterality of affected vessel: left Qualified Code(s): I63.412 - Cerebral infarction due to embolism of left middle cerebral artery (3) History of thrombectomy: (4) Severe aphasia: (5) Dysarthria: (6) Atrial fibrillation: QUALIFIERS: Atrial fibrillation type: longstanding persistent Qualified Code(s): I48.11 - Longstanding persistent atrial fibrillation (7) Chronic anticoagulation: (8) HTN (hypertension): QUALIFIERS: Hypertension type: primary hypertension Qualified Code(s): I10 - Essential (primary) hypertension (9) Hyponatremia: PLAN: 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 On fluid restriction and was on salt tabs but, this was apparently discontinued at DC from the previous hospital. (10) Aspiration pneumonia: QUALIFIERS: Aspiration pneumonia type: unspecified Laterality: right Lung location: lower lobe of lung Qualified Code(s): J69.0 - Pneumonitis due to inhalation of food and vomit PLAN: Plan 1. Continue therapy 2. Continue vancomycin and meropenem 3. Check a nasal screening for MRSA. If negative likely discontinue vancomycin after 3 doses. 4. Follow-up lab ordered for Sunday 5. Pharmacy managing vancomycin dosing 6. Discontinue pantoprazole because she is unable to swallow capsules and transition to lansoprazole 30 mg daily. Charges/Coding Visit Charges Inpatient E&M: 50717 [facility] L1
[2024-02-09] MEDS: Menthol/Lanolin/Calamine/Znox 113 GM Tube 1 APPLIC TOPICAL ×2 (12:08→20:18)
[2024-02-09] MEDS: Atorvastatin Calcium 40 MG Tablet PO (12:09)
[2024-02-09] MEDS: Senna/Docusate Sodium 1 Tablet 2 TABLET PO (12:09)
[2024-02-09] MEDS: Sodium Chloride 1 GM Tablet PO ×2 (12:14→22:31)
[2024-02-09] MEDS: Lansoprazole 15 MG Capsule.DR 30 MG PO (12:23)
[2024-02-09] MEDS: Atenolol 25 MG Tablet PO ×2 (12:24→22:31)
[2024-02-09 12:29] VITALS: BP 137/69; PULSE 90
[2024-02-09] MEDS: Vancomycin IV 1,000 MG/200 ML BAG 200 MG IV (12:42)
--- NOTE | 2024-02-09 13:23 | NURSING ---
Daughter, Marcela, calls in form an update. marlo Batista, verified. Answered all questions asked and updated on new order for Lansoprazole in place of Protonix d/t swallowing issues. Marcela verbalizes concerns w/ her nephew, Nahid, also visiting in addition to her sister Yolanda. She notes Nahid has dark brown hair, height is approximately 6'2, and he likely will accompany Yolanda to the unit. informed her visits w/ Yolanda are to be conducted in the therapy room across the nurses station for staff to monitor. She verbalizes understanding and expresses appreciation staff support.
[2024-02-09 18:00] VITALS: BP 153/72; PULSE 91; RESP 16; TEMP 36.5
[2024-02-09] MEDS: Mirtazapine 15 MG Tablet 7.5 MG PO (20:15)
[2024-02-09] MEDS: Nystatin Powder 15gm Bottle 1 APPLIC TOPICAL (22:34)
[2024-02-10] MEDS: dilTIAZem 60 MG Tablet PO ×4 (00:33→21:38)
[2024-02-10] MEDS: 0.9% Saline Lock 10 ML Syringe IV ×4 (01:34→21:40)
[2024-02-10 06:00] VITALS: BP 137/71; PULSE 80; RESP 16; TEMP 36.2; O2SAT 96
[2024-02-10 07:35] VITALS: O2SAT 93
[2024-02-10] MEDS: Lansoprazole 15 MG Capsule.DR 30 MG PO (08:57)
[2024-02-10] MEDS: Losartan Potassium 50 MG Tablet PO (08:57)
[2024-02-10] MEDS: Sodium Chloride 1 GM Tablet PO ×2 (08:57→21:38)
[2024-02-10] MEDS: Menthol/Lanolin/Calamine/Znox 113 GM Tube 1 APPLIC TOPICAL ×2 (08:57→21:39)
[2024-02-10] MEDS: Atenolol 25 MG Tablet PO (08:57)
[2024-02-10] MEDS: Aspirin 81 MG TAB.CHEW PO (08:57)
[2024-02-10] MEDS: Nystatin Powder 15gm Bottle 1 APPLIC TOPICAL ×2 (08:57→21:39)
[2024-02-10] MEDS: Atorvastatin Calcium 40 MG Tablet PO (08:58)
[2024-02-10] MEDS: Ensure Plus High Protein 120 ML LIQUID PO ×3 (08:58→17:34)
[2024-02-10] MEDS: Meropenem 1 GM in 0.9% Normal Saline (100mL MB+) 100 ML IV ×2 (09:53→21:41)
[2024-02-10 11:42] LABS: Vancomycin, Trough Level 6.5 ug/mL (5.0-15.0)
--- NOTE | 2024-02-10 12:14 | PCM.RX.CS ---
Consult Antibiotic Management Pharmacy has been consulted to manage selected antibiotic: Vancomycin Type of Intervention Type of Consult: Follow-up Suspected Infection Suspected Infection: Sepsis Prior Doses of Antibiotics Prior Doses of Antibiotics Received/Current Regimen: Vancomycin 1000 mg Q24H last dose given 02/08 @ 1242. Labs Labs: Sodium 136 mmol/L (136-145) 02/08/24 04:44 Potassium 3.1 mmol/L (3.5-5.1) L 02/08/24 04:44 Chloride 104 mmol/L (98-107) 02/08/24 04:44 Carbon Dioxide 25.0 mmol/L (21.0-32.0) 02/08/24 04:44 Anion Gap 6 (5-15) 02/08/24 04:44 BUN 17 mg/dL (7-18) 02/08/24 04:44 Creatinine 0.52 mg/dL (0.55-1.02) L 02/08/24 04:44 Est GFR (MDRD) Af Amer 144 mL/min (>60) 02/08/24 04:44 Est GFR (MDRD) Non-Af 119 mL/min (>60) 02/08/24 04:44 BUN/Creatinine Ratio 32.8 RATIO (10-20) H 02/08/24 04:44 Glucose 128 mg/dL (74-106) H 02/08/24 04:44 Vancomycin Trough 6.5 ug/mL (5.0-15.0) 02/10/24 11:12 Microbiology Microbiology: Microbiology 02/08/24 12:43 Mucosa - Nose Respiratory Panel (PCR) - Final Dosing Weight Weight used for dosin kg Estimated Creatinine Clearance Estimated Creatinine Clearance: ~ 50 Goal Trough Goal Trough: 10-15 mcg/mL Pharmacy Plan for Drug Dosing Pharmacy Plan for Drug Dosing: Vancomycin trough = 6.5, increase to 750 mg Q12H. Pharmacy Service will continue to monitor and adjust dosing as required. Follow-Up Labs Follow-Up Labs: Trough: Vancomycin Date/Time Labs Ordered Labs to be done on [date and time ordered]: 02/12/24 @ 0000
[2024-02-10] MEDS: Vancomycin HCl 750 MG in 0.9% Normal Saline (250mL Bag) 250 ML 250 MG IV (12:59)
[2024-02-10] MEDS: Vancomycin Trough/Random Due 1 LAB MC ×2 (13:04)
[2024-02-10 13:08] VITALS: BP 136/58; PULSE 81
--- NOTE | 2024-02-10 13:50 | PN_ITS ---
Subjective Subjective Afebrile VSS -blood pressure over the past 24 hours has ranged from 136/58 to 153/72. Heart rate is ranged from 88-92. Maintaining appropriate oxygen saturation on RA - 90 to 93%. Oral intake - FOOD refused breakfast today but then ate 50 to 74% of her lunch. FLUIDS poor. Oral fluid intake yesterday was only 170 cc. Discussed with nursing -incontinent of loose stool throughout the night. Stool softeners placed on hold. C. difficile is been ordered due to another patient on rehab being positive for C. difficile. I talked to nursing and therapy and the patient was very drowsy yesterday morning and was very drowsy again this morning. She was started on Remeron at admission because she was not sleeping or eating and she is depressed. May need to give it earlier in the evening Reviewed the THERAPY notes Medication list reviewed. Vanco trough is low at 6.5. Pharmacy has adjusted the dose. Denies pain, denies shortness of breath. Does not appear to be in any distress. She was very alert when I saw her. She makes good eye contact with me and she is engaged in what we are talking about. Speech is more clear than it was at admission and I can understand her easily. Still with severe expressive aphasia. Not coughing. Not tachypneic and respirations are not labored. Objective Data Objective Data Vital Signs: Vital Signs Temp Pulse Resp BP Pulse Ox O2 Del Method 97.2 F L 81 16 136/58 H 93 Room Air 02/10/24 06:00 02/10/24 13:08 02/10/24 06:00 02/10/24 13:08 02/10/24 07:35 02/10/24 10:00 Oxygen Delivery Method Room Air Weight: 162 lb 12.806 oz Body Mass Index (BMI) 22.6 Intake & Output: Intake and Output for Last 24 Hours 02/08/24 02/09/24 02/10/24 23:59 23:59 23:59 Intake Total 1315 / 1315 610.0 / 610.0 640 / 640 Output Total 250 / 250 Balance 1065 / 1065 610.0 / 610.0 639 / 639 Lab / Micro Data 02/08/24 04:44 02/08/24 04:44 Labs: Laboratory Results - last 24 hr 02/10/24 11:12: Vancomycin Trough 6.5 Micro: Microbiology 02/08/24 12:43 Mucosa - Nose Respiratory Panel (PCR) - Final Physical Exam Const alert General Appearance: cooperative HEENT Mouth: dry mucous membranes Resp Resp Narrative: Persistent crackles in the right base. Cardio Cardio Narrative: Irregular irregular rhythm with controlled ventricular response. No gallop. GI normal to inspection, nondistended, normoactive bowel sounds, soft to palpation and non-tender GI Narrative: No guarding with palpation Extremity no calf tenderness General Extremity: Negative for edema Skin Rashes: no rashes Assessment & Plan Assessment/Plan (1) Debility: (2) Embolic stroke: QUALIFIERS: Precerebral and cerebral artery: middle cerebral artery Laterality of affected vessel: left Qualified Code(s): I63.412 - Cerebral infarction due to embolism of left middle cerebral artery (3) History of thrombectomy: (4) Severe aphasia: (5) Dysarthria: (6) Atrial fibrillation: QUALIFIERS: Atrial fibrillation type: longstanding persistent Q ualified Code(s): I48.11 - Longstanding persistent atrial fibrillation (7) Chronic anticoagulation: (8) HTN (hypertension): QUALIFIERS: Hypertension type: primary hypertension Qualified Code(s): I10 - Essential (primary) hypertension (9) Hyponatremia: (10) Aspiration pneumonia: QUALIFIERS: Aspiration pneumonia type: unspecified Laterality: r ight Lung location: lower lobe of lung Qualified Code(s): J69.0 - Pneumonitis due to inhalation of food and vomit PLAN: Plan 1. Continue therapy 2. Change the Cardizem to 60 mg p.o. 3 times daily 3. Increase atenolol to 50 mg twice daily 4. The MRSA nasal swab ordered yesterday was not done -discussed with nursing and they will send 1 today. If the nasal swab is negative for MRSA will discontinue vancomycin. 5. Lab has been ordered for tomorrow 6. Continue Merrem Charges/Coding Visit Charges Inpatient E&M: 22096 [facility] L1
[2024-02-10 18:00] VITALS: BP 123/58; PULSE 83; RESP 18; TEMP 36.6; O2SAT 99
[2024-02-10] MEDS: Mirtazapine 15 MG Tablet 7.5 MG PO (18:33)
[2024-02-10] MEDS: Atenolol 50 MG Tablet PO (21:38)
[2024-02-11] MEDS: 0.9% Saline Lock 10 ML Syringe IV ×3 (00:41→11:15)
[2024-02-11] MEDS: dilTIAZem 60 MG Tablet PO ×3 (05:18→22:16)
[2024-02-11 05:34] VITALS: BMI 22.1
[2024-02-11 05:35] VITALS: BP 129/63; PULSE 95; RESP 16; TEMP 36.9; O2SAT 95
[2024-02-11 05:47] LABS: Absolute Neutrophil Count 5.8 X10^3/uL (2.0-7.7); Basophil# 0.07 X10^3/uL; Basophil% 0.7 % (0-1); Eosinophil# 0.36 X10^3/uL; Eosinophils% 3.8 % (0-5); Hematocrit 32.1 % (37-47); Hemoglobin 10.5 g/dL (12.0-15.0); Lymphocyte % 24.2 % (19-41); Mean Corp Hgb Conc 32.7 g/dL (32-36); Mean Corpuscular Hgb 29.9 pg (27.0-32.0); Mean Corpuscular Volume 91.5 fL (81-99); Mean Platelet Vol. 9.4 fl (6.2-12.0); Monocyte# 0.95 X10^3/uL; NRBC Flagged by Analyzer 0 % (0-5); Neutrophil # 5.75 X10^3/uL (2.7-7.7); Neutrophil % 60.7 % (47-70); Platelet Count 484 K/mm3 (150-450); RBC Distribution Width CV 15.1 % (11.6-14.6); Red Blood Count 3.51 M/mm3 (4.2-5.4); White Blood Count 9.5 K/mm3 (4.4-11.0)
[2024-02-11 06:16] LABS: Anion Gap 5 (5-15); BUN 23 mg/dL (7-18); BUN/Creat Ratio 39.6 RATIO (10-20); Calcium,Total 9.1 mg/dL (8.5-10.1); Chloride 107 mmol/L (98-107); Creatinine, Serum 0.58 mg/dL (0.55-1.02); EST Glomerular Filtration Rate 104 mL/min (>60); Est Glom Filt Rate - Afr Amer 126 mL/min (>60); Estimated Creatinine Clearance 44.58 ml/min; Glucose 114 mg/dL (74-106); Magnesium 1.8 mg/dL (1.6-2.6); Potassium 3.8 mmol/L (3.5-5.1); Sodium Level 138 mmol/L (136-145)
[2024-02-11 07:37] VITALS: O2SAT 95
[2024-02-11] MEDS: Atenolol 50 MG Tablet PO ×2 (09:51→22:15)
[2024-02-11] MEDS: Aspirin 81 MG TAB.CHEW PO (09:51)
[2024-02-11] MEDS: Ensure Plus High Protein 120 ML LIQUID PO ×3 (09:51→17:39)
[2024-02-11] MEDS: Lansoprazole 15 MG Capsule.DR 30 MG PO (09:52)
[2024-02-11] MEDS: Menthol/Lanolin/Calamine/Znox 113 GM Tube 1 APPLIC TOPICAL ×2 (09:52→22:17)
[2024-02-11] MEDS: Atorvastatin Calcium 40 MG Tablet PO (09:53)
[2024-02-11] MEDS: Nystatin Powder 15gm Bottle 1 APPLIC TOPICAL ×2 (09:53→22:17)
[2024-02-11] MEDS: Sodium Chloride 1 GM Tablet PO ×2 (09:54→22:15)
--- NOTE | 2024-02-11 10:34 | PN_ITS ---
Subjective Subjective Marika was seen on team rounds today. Her daughter Marcela and son Rafael were present in the room. Day 4 meropenem Afebrile-no fever since 02/09/2024 VSS -blood pressure over the past 24 hours has ranged from 123/58 to 137/71. Heart rate has ranged from 80-95. She is 95 this morning. Mucous membranes are dry and she has poor oral fluid intake. Maintaining appropriate oxygen saturation on RA Oral intake - FOOD poor FLUIDS poor Bowel movement today is medium/formed. Only 1 bowel movement yesterday she had a bowel movement while on the toilet today. Discussed with nursing - no problems that need addressed Reviewed the THERAPY notes - I talked with OT who saw the patient about 8 AM today and she was alert and able to do therapy. The Remeron was changed to 7 PM last night due to increased fatigue and inability to do therapy in the AM. Medication list reviewed. she denies pain and also denies SOB, abd pain, nausea. I do not know how reliable her responses are. today she is answering I don't care to everything OT says to her. She is able to follow commands and she does not appear to be in any distress. All lab drawn this morning was personally reviewed. White blood cell count is normal at 9.5 and neutrophils are down to 60.7%. Hemoglobin is 10.5, up from 10.1 on 02/08/2024. Platelets are increased at 484,000. Sodium is stable at 138 and the potassium is 3.8 following supplementation. The BUN is up to 23 from 17 on 02/08/2024. Creatinine is 0.58. Calcium is normal at 9.1 and the magnesium is 1.8. MRSA nasal swab was negative. Vancomycin has been discontinued. She only had diarrhea for approximately 12 hours and this has resolved. Objective Data Objective Data Vital Signs: Vital Signs Temp Pulse Resp BP Pulse Ox O2 Del Method 98.5 F 95 16 129/63 H 95 Room Air 02/11/24 05:35 02/11/24 05:35 02/11/24 05:35 02/11/24 05:35 02/11/24 07:37 02/11/24 07:37 Oxygen Delivery Method Room Air Weight: 133 lb 2.547 oz Body Mass Index (BMI) 22.1 Intake & Output: Intake and Output for Last 24 Hours 02/09/24 02/10/24 02/11/24 23:59 23:59 23:59 Intake Total 610.0 / 610.0 1025 / 1025 320 / 320 Output Total Balance 610.0 / 610.0 1024 / 1024 320 / 320 Lab / Micro Data 02/11/24 05:06 02/11/24 05:06 Labs: Laboratory Results - last 24 hr 02/10/24 11:12: Vancomycin Trough 6.5 02/11/24 05:06: WBC 9.5, RBC 3.51 L, Hgb 10.5 L, Hct 32.1 L, MCV 91.5, MCH 29.9, MCHC 32.7, RDW Std Deviation 51.0 H, RDW Coeff of Jt 15.1 H, Plt Count 484 H, MPV 9.4, Immature Gran % (Auto) 0.600, Neut % (Auto) 60.7, Lymph % (Auto) 24.2, [place] % (Auto) 10.0, Eos % (Auto) 3.8, Baso % (Auto) 0.7, Absolute Neuts (auto) 5.8, Absolute Lymphs (auto) 2.30, Nucleated RBC % 0, Sodium 138, Potassium 3.8, Chloride 107, Carbon Dioxide 26.0, Anion Gap 5, BUN 23 H, Creatinine 0.58, Estim Creat Clear Calc 44.58, Est GFR (MDRD) Af Amer 126, Est GFR (MDRD) Non-Af 104, B UN/Creatinine Ratio 39.6 H, Glucose 114 H, Calcium 9.1, Magnesium 1.8 Micro: Microbiology 02/10/24 14:20 Nasal Secretion MRSA (PCR) - Final 02/08/24 12:43 Mucosa - Nose Respiratory Panel (PCR) - Final Physical Exam Const alert and no apparent distress HEENT Mouth: dry mucous membranes Resp Resp Narrative: Better air exchange, especially in the bases. She has coarse crackles in both bases. No wheezing. She is not tachypneic. No cough with deep breath. Respirations are not labored. She was able to do the incentive spirometer when I instructed her. Cardio no gallops Cardio Narrative: Irregular irregular rhythm with increased heart rate in the high 90s. I suspect this is related to intravascular volume depletion. GI normal to inspection, nondistended, normoactive bowel sounds, soft to palpation and non-tender GI Narrative: No guarding with palpation Extremity no calf tenderness General Extremity: Negative for edema Skin Rashes: no rashes Psych cooperative Psych Narrative: appetite is still poor and so is fluid intake. She was too sleepy in the AM when getting Remeron 7.5 mg at 9 PM. Did better this AM since Remeron was changed to be given at 7 PM. Will continue Remeron. Assessment & Plan Assessment/Plan (1) Debility: (2) Embolic stroke: QUALIFIERS: Precerebral and cerebral artery: middle cerebral artery Laterality of affected vessel: left Qualified Code(s): I63.412 - Cerebral infarction due to embolism of left middle cerebral artery (3) History of thrombectomy: (4) Severe aphasia: (5) Dysarthria: (6) Atrial fibrillation: QUALIFIERS: Atrial fibrillation type: longstanding persistent Q ualified Code(s): I48.11 - Longstanding persistent atrial fibrillation (7) Chronic anticoagulation: (8) HTN (hypertension): QUALIFIERS: Hypertension type: primary hypertension Qualified Code(s): I10 - Essential (primary) hypertension (9) Hyponatremia: (10) Aspiration pneumonia: QUALIFIERS: Aspiration pneumonia type: unspecified Laterality: r ight Lung location: lower lobe of lung Qualified Code(s): J69.0 - Pneumonitis due to inhalation of food and vomit PLAN: Plan 1. Continue therapy 2. Continue Remeron and give it at 7 PM at night. 3. Check orthostatics today 4. Blood pressure is much better controlled with changes to the antihypertensive regimen. 5. Continue to encourage increased oral fluid intake 6. Discontinue stool studies. Diarrhea only occurred for approximately 12 hours and has resolved. She had a formed bowel movement today. 7. Discontinue meropenem and start Augmentin 875 mg twice daily 8. Incentive spirometry for 10 breaths every hour while awake Charges/Coding Visit Charges Inpatient E&M: 85058 Subs Hosp L2
--- NOTE | 2024-02-11 12:50 | CASEMGMT ---
Social Work IDT met with patient, dtr Marcela and son Rafael, for Team meeting. Discussed patient's progress in PT/OT/ST/SN. Educated to Medicare approval of 20 days with [facility] 02/26. Pt has made improvements, though still needing significant assistance. Pt is having poor intake. Dr started pt on Remeron to assist. SW to follow with progress and provide DC options with family for safe DC planning. Dtr requested to meet with this worker separately with brother. SW agreed to contact dtr to schedule a separate meeting. Will continue to follow. ReTeam weekly. Basilia Mcfarlane CHRONIC SPECIALIST ELECTRICIAN [employer]
[2024-02-11] MEDS: Mirtazapine 15 MG Tablet 7.5 MG PO (17:38)
[2024-02-11] MEDS: Amox/Clav 400mg/5ml Susp 875 MG PO (17:39)
[2024-02-11 18:00] VITALS: BP 137/64; PULSE 65; RESP 18; TEMP 36.6; O2SAT 97
[2024-02-11] MEDS: Senna/Docusate Sodium 1 Tablet 2 TABLET PO (22:16)
[2024-02-12] MEDS: dilTIAZem 60 MG Tablet PO ×3 (05:03→20:39)
[2024-02-12 06:00] VITALS: BP 150/49; PULSE 87; RESP 17; TEMP 36.7; O2SAT 93
[2024-02-12] MEDS: Amox/Clav 400mg/5ml Susp 875 MG PO ×2 (08:02→16:56)
[2024-02-12] MEDS: Ensure Plus High Protein 120 ML LIQUID PO ×3 (08:02→16:55)
[2024-02-12] MEDS: Lansoprazole 15 MG Capsule.DR 30 MG PO (08:06)
[2024-02-12] MEDS: Atorvastatin Calcium 40 MG Tablet PO (08:07)
[2024-02-12] MEDS: Atenolol 50 MG Tablet PO ×2 (08:07→20:39)
[2024-02-12] MEDS: Losartan Potassium 50 MG Tablet PO (08:08)
[2024-02-12] MEDS: Aspirin 81 MG TAB.CHEW PO (08:08)
[2024-02-12] MEDS: Sodium Chloride 1 GM Tablet PO ×2 (08:08→20:39)
[2024-02-12] MEDS: Menthol/Lanolin/Calamine/Znox 113 GM Tube 1 APPLIC TOPICAL ×2 (08:14→20:40)
[2024-02-12] MEDS: Nystatin Powder 15gm Bottle 1 APPLIC TOPICAL ×2 (08:14→20:39)
[2024-02-12 08:46] VITALS: BP 140/62; PULSE 84; RESP 18; O2SAT 96
--- NOTE | 2024-02-12 13:35 | CASEMGMT ---
Social Work SW phoned dtr, Marcela, to follow up on request to meet separately with family members. FABIAN scheduled meeting after Team meeting 02/17. Dtr to invite both sons, Rafael and Krish, to be involved. Dtr would like to proceed with an eviction notice for sister, Yolanda, who is living with pt. Dtr also inquired about pt's competence. FABIAN explained to dtr, per conversation with [facility], Marcela needs to contact the local police department to learn of the the proper steps for an eviction notice. Yolanda has established residency at the home, and in the eyes of the law, the house is both Yolanda's and the patient's. Cautioned that process can take up to a year, thus it will be finalized by the time of pt's DC from [facility]. Though, SW offered it may be a silver lining if pt needs the LOC at a SNF and pt can remain safe at a SNF. Dtr stated she is planning on consulting an assistant prosecuting attorney for assistance. Dtr expressed concern with pt's competency and if she regains competency in the future, if this decision will be an issue. FABIAN explained the decision is Marcela's as pt's HCPOA, as pt is not competent to make decisions at this time. The decisions being made currently as made based on the current information, safety concerns and pts lack of competent. Pt may regain competence in the future and make her own decisions at that time. Explained Dr can complete incompetency paperwork, but if guardianship needs pursued, the Bag Filler will make the final ruling on competency and who is the decision maker/guardian. Dtr's voice is trembling and very anxious. FABIAN reassured this worker will assist as able and explain this information again at the meeting for siblings to hear as well. Dtr appreciative. FABIAN will continue to follow. Basilia Mcfarlane, CHRISTINA MOTLEY
[2024-02-12 14:52] VITALS: BP 142/60; PULSE 90; RESP 16
--- NOTE | 2024-02-12 16:19 | CHAPLAIN ---
Type of Pastoral Visit _x__ Initial Visit ___ Follow-up Visit ___ On-call Visit ___ General Patient Visit ___ Spiritual Assessment ___ Family Conference ___ Bereavement ___ Rapid Response ___ Code Blue ___ Other (describe below) Pastoral Care Referral From _x__ Patient ___ Family ___ Nurse ___ Physician ___ Auto Apprentice Mechanic ___ Logistics Planning Manager ___ Other (describe below) Sacrament/Intervention _x__ Active listening ___ Anointing ___ Hindu ___ Bereavement ___ Communion ___ Keyonna exploration ___ ___ Life review _x__ Prayer ___ Reconciliation ___ Sacrament of Sick _x__ Supportive presence ___ Wedding ___ Other (describe below) Pastoral Comments patient appeared to be napping but awoke easily to her name; pt did answer questions but was slow to respond at times and kept her comments in simple words or phrases; pt stated that she had no worries and was fine; pt did welcome a prayer for support
[2024-02-12 17:26] VITALS: BP 151/68; PULSE 92; RESP 16; TEMP 36.8; O2SAT 96
[2024-02-12] MEDS: Mirtazapine 15 MG Tablet 7.5 MG PO (19:31)
[2024-02-12] MEDS: 0.9% Saline Lock 10 ML Syringe IV (19:39)
[2024-02-13] MEDS: dilTIAZem 60 MG Tablet PO ×3 (05:31→20:38)
[2024-02-13 05:58] VITALS: BP 144/66; PULSE 100; RESP 14; TEMP 36.3; O2SAT 95
[2024-02-13] MEDS: Lansoprazole 15 MG Capsule.DR 30 MG PO (08:21)
[2024-02-13] MEDS: Atenolol 50 MG Tablet PO ×2 (08:22→20:38)
[2024-02-13] MEDS: Aspirin 81 MG TAB.CHEW PO (08:22)
[2024-02-13] MEDS: Sodium Chloride 1 GM Tablet PO ×2 (08:22→20:28)
[2024-02-13] MEDS: Nystatin Powder 15gm Bottle 1 APPLIC TOPICAL ×2 (08:22→20:38)
[2024-02-13] MEDS: Atorvastatin Calcium 40 MG Tablet PO (08:23)
[2024-02-13] MEDS: Losartan Potassium 50 MG Tablet PO (08:23)
[2024-02-13] MEDS: Ensure Plus High Protein 120 ML LIQUID PO ×3 (08:23→17:17)
[2024-02-13] MEDS: Menthol/Lanolin/Calamine/Znox 113 GM Tube 1 APPLIC TOPICAL ×2 (08:23→20:37)
[2024-02-13] MEDS: Amox/Clav 400mg/5ml Susp 875 MG PO ×2 (08:27→17:18)
--- NOTE | 2024-02-13 12:55 | PN_ITS ---
Subjective Subjective Afebrile VSS -blood pressure over the past 24 hours has ranged from 140/62 to 151/68. Current antihypertensives include atenolol 50 mg twice daily, diltiazem 60 mg every 8 hours and losartan 50 mg daily. Heart rate over the past 24 hours has ranged from 65-100. She is tolerating the increase in the atenolol from 25 to 50 mg twice daily without any bradycardia. Maintaining appropriate oxygen saturation on RA Oral intake - FOOD appetite is improving. She ate 50 to 74% of her past 3 meals and she is feeding herself. FLUIDS poor Discussed with nursing - no problems that need addressed. Sleeping well at night. Cooperative. Reviewed the THERAPY notes Medication list reviewed. She denies lightheadedness, chest pain, cough, shortness of breath, nausea, abdominal pain, dysuria and calf tenderness. Objective Data Objective Data Vital Signs: Vital Signs Temp Pulse Resp BP Pulse Ox O2 Del Method 97.4 F L 100 14 144/66 H 95 Room Air 02/13/24 05:58 02/13/24 05:58 02/13/24 05:58 02/13/24 05:58 02/13/24 05:58 02/13/24 05:58 Oxygen Delivery Method Room Air Weight: 133 lb 2.547 oz Body Mass Index (BMI) 22.1 Intake & Output: Intake and Output for Last 24 Hours 02/11/24 02/12/24 02/13/24 23:59 23:59 23:59 Intake Total 800 / 800 640 / 640 120 / 120 Output Total 300 / 300 Balance 800 / 800 340 / 340 120 / 120 Lab / Micro Data 02/11/24 05:06 02/11/24 05:06 Micro: Microbiology 02/08/24 12:02 Blood Culture (Wb) - Anticubital Right Blood Culture - Final No growth in 5 days. 02/10/24 14:20 Nasal Secretion MRSA (PCR) - Final 02/08/24 12:43 Mucosa - Nose Respiratory Panel (PCR) - Final Physical Exam Const alert Constitutional Narrative: She spoke a 5 word phrase to me today and it was appropriate to what I asked her. Still can not tell me where she is, what month it is or how old she is. When I told her she is 88 she perseverated on 88 and then started answering all questions with 88. She is smiling and pleasant. She seems happy to be able to feed herself. Very motivated to do things herself. General Appearance: cooperative HEENT Mouth: dry mucous membranes Resp normal respiratory effort and clear to auscultation bilaterally Cardio no rub and no gallops Cardio Narrative: Irregular irregular rhythm. Resting heart rate is at the upper limits of normal today even with the increase in atenolol and I suspect this is secondary to intravascular volume depletion. GI normal to inspection, nondistended, normoactive bowel sounds, soft to palpation and non-tender GI Narrative: No guarding with palpation Extremity no calf tenderness General Extremity: Negative for edema Skin Rashes: no rashes Assessment & Plan Assessment/Plan (1) Debility: (2) Embolic stroke: QUALIFIERS: Precerebral and cerebral artery: middle cerebral artery Laterality of affected vessel: left Qualified Code(s): I63.412 - Cerebral infarction due to embolism of left middle cerebral artery (3) History of thrombectomy: (4) Severe aphasia: (5) Dysarthria: (6) Atrial fibrillation: QUALIFIERS: Atrial fibrillation type: longstanding persistent Q ualified Code(s): I48.11 - Longstanding persistent atrial fibrillation (7) Chronic anticoagulation: (8) HTN (hypertension): QUALIFIERS: Hypertension type: primary hypertension Qualified Code(s): I10 - Essential (primary) hypertension (9) Hyponatremia: (10) Aspiration pneumonia: QUALIFIERS: Aspiration pneumonia type: unspecified Laterality: r ight Lung location: lower lobe of lung Qualified Code(s): J69.0 - Pneumonitis due to inhalation of food and vomit PLAN: Plan 1. Continue therapy 2. Recheck a BMP and magnesium in the AM. 3. Orthostatic vital signs in the a.m. 4. May need to administer some IV fluids if the creatinine/BUN are significantly elevated. 5. Systolic blood pressure is mildly elevated now however the atenolol was just increased a few days ago so we will continue to monitor. If it remains above 130 will increase the losartan dose. Charges/Coding Visit Charges Inpatient E&M: 54113 Subs Hosp L1
[2024-02-13 18:00] VITALS: BP 140/58; PULSE 70; RESP 16; TEMP 36.4; O2SAT 98
[2024-02-13] MEDS: Mirtazapine 15 MG Tablet 7.5 MG PO (20:27)
[2024-02-13 20:35] VITALS: BP 141/68; PULSE 84
[2024-02-13] MEDS: 0.9% Saline Lock 10 ML Syringe IV (22:53)
[2024-02-14 05:36] VITALS: BMI 21.7
[2024-02-14 05:37] VITALS: BP 141/82; PULSE 103; RESP 16; TEMP 37.1; O2SAT 97
[2024-02-14] MEDS: dilTIAZem 60 MG Tablet PO ×3 (05:38→20:42)
[2024-02-14 06:05] VITALS: BP 125/89; BP 129/59; BP 139/86; PULSE 94; PULSE 97; PULSE 98
[2024-02-14] MEDS: Menthol/Lanolin/Calamine/Znox 113 GM Tube 1 APPLIC TOPICAL ×2 (07:48→20:43)
[2024-02-14] MEDS: Amox/Clav 400mg/5ml Susp 875 MG PO ×2 (07:48→17:55)
[2024-02-14] MEDS: Ensure Plus High Protein 120 ML LIQUID PO ×3 (07:48→17:55)
[2024-02-14] MEDS: Atenolol 50 MG Tablet PO ×2 (07:49→20:42)
[2024-02-14] MEDS: Sodium Chloride 1 GM Tablet PO ×2 (07:49→20:41)
[2024-02-14] MEDS: Aspirin 81 MG TAB.CHEW PO (07:49)
[2024-02-14] MEDS: Lansoprazole 15 MG Capsule.DR 30 MG PO (07:49)
[2024-02-14] MEDS: Atorvastatin Calcium 40 MG Tablet PO (07:50)
[2024-02-14] MEDS: Losartan Potassium 50 MG Tablet PO (07:50)
[2024-02-14] MEDS: Nystatin Powder 15gm Bottle 1 APPLIC TOPICAL ×2 (07:50→20:43)
[2024-02-14] MEDS: Acetaminophen 325 MG Tablet 650 MG PO (13:02)
--- NOTE | 2024-02-14 13:08 | RAD_ITS ---
STUDY: X-RAY - RIGHT WRIST REASON FOR EXAM: Female, 88 years old. swelling -- Portable TECHNIQUE: 3 view(s) of the wrist were obtained. COMPARISON: None. FINDINGS: There is demineralization of the radius and ulna. Normal radiocarpal articulation. Normal distal radioulnar articulation. Normal carpal bones. Normal carpal articulations. There is degenerative arthrosis of the carpometacarpal articulation of the thumb. Normal second through fifth carpometacarpal articulations. There is demineralization of the metacarpal bones. The soft tissue structures are unremarkable. RAD/Wrist 2 Views IMPRESSION: Severe first carpometacarpal joint arthrosis. Electronically Signed: Kfoi Ariza MD at 16:07 EST ,
[2024-02-14] MEDS: Mirtazapine 15 MG Tablet 7.5 MG PO (17:55)
[2024-02-14 18:00] VITALS: BP 118/67; PULSE 89; RESP 17; TEMP 36.7; O2SAT 96
[2024-02-14 20:25] VITALS: PULSE 89; RESP 17; O2SAT 96
[2024-02-15 05:16] VITALS: BP 153/82; PULSE 89; RESP 16; TEMP 36.7; O2SAT 95
[2024-02-15] MEDS: dilTIAZem 60 MG Tablet PO ×3 (05:18→20:32)
[2024-02-15] MEDS: Atenolol 50 MG Tablet PO ×2 (08:32→20:32)
[2024-02-15] MEDS: Amox/Clav 400mg/5ml Susp 875 MG PO ×2 (08:33→17:25)
[2024-02-15] MEDS: Lansoprazole 15 MG Capsule.DR 30 MG PO (08:35)
[2024-02-15] MEDS: Atorvastatin Calcium 40 MG Tablet PO (08:35)
[2024-02-15] MEDS: Sodium Chloride 1 GM Tablet PO ×2 (08:35→20:33)
[2024-02-15] MEDS: Aspirin 81 MG TAB.CHEW PO (08:35)
[2024-02-15] MEDS: Ensure Plus High Protein 120 ML LIQUID PO ×3 (08:36→17:25)
[2024-02-15] MEDS: Menthol/Lanolin/Calamine/Znox 113 GM Tube 1 APPLIC TOPICAL ×2 (08:36→20:33)
[2024-02-15] MEDS: Losartan Potassium 50 MG Tablet PO (08:36)
[2024-02-15] MEDS: Nystatin Powder 15gm Bottle 1 APPLIC TOPICAL ×2 (08:37→20:32)
[2024-02-15 10:00] VITALS: RESP 16; O2SAT 98
[2024-02-15 18:00] VITALS: BP 116/49; PULSE 72; RESP 14; TEMP 36.5; O2SAT 93
[2024-02-15] MEDS: Mirtazapine 15 MG Tablet 7.5 MG PO (20:14)
[2024-02-15 20:30] VITALS: PULSE 72; RESP 14; O2SAT 93
[2024-02-15] MEDS: 0.9% Saline Lock 10 ML Syringe IV (23:43)
[2024-02-16 06:00] VITALS: BP 125/69; PULSE 74; RESP 16; TEMP 36.7; O2SAT 97
[2024-02-16] MEDS: dilTIAZem 60 MG Tablet PO ×3 (06:45→21:27)
[2024-02-16] MEDS: Acetaminophen 325 MG Tablet 650 MG PO (06:45)
[2024-02-16] MEDS: Aspirin 81 MG TAB.CHEW PO (07:48)
[2024-02-16] MEDS: Amox/Clav 400mg/5ml Susp 875 MG PO (07:50)
[2024-02-16] MEDS: Ensure Plus High Protein 120 ML LIQUID PO ×3 (07:54→17:49)
[2024-02-16] MEDS: Losartan Potassium 50 MG Tablet PO (09:10)
[2024-02-16] MEDS: Lansoprazole 15 MG Capsule.DR 30 MG PO (09:11)
[2024-02-16] MEDS: Sodium Chloride 1 GM Tablet PO ×2 (09:11→21:24)
[2024-02-16] MEDS: Atorvastatin Calcium 40 MG Tablet PO (09:12)
[2024-02-16] MEDS: Atenolol 50 MG Tablet PO ×2 (09:12→21:27)
[2024-02-16] MEDS: Nystatin Powder 15gm Bottle 1 APPLIC TOPICAL ×2 (10:47→21:27)
[2024-02-16] MEDS: Menthol/Lanolin/Calamine/Znox 113 GM Tube 1 APPLIC TOPICAL ×2 (10:48→21:26)
[2024-02-16 17:19] VITALS: BP 116/59; PULSE 71; RESP 16; TEMP 36.9; O2SAT 98
[2024-02-16] MEDS: Mirtazapine 15 MG Tablet 7.5 MG PO (18:30)
[2024-02-16 21:25] VITALS: BP 154/68; PULSE 90
[2024-02-16] MEDS: 0.9% Saline Lock 10 ML Syringe IV (21:28)
[2024-02-17 05:47] VITALS: BP 150/64; PULSE 80; RESP 17; TEMP 36.8; O2SAT 96
[2024-02-17] MEDS: dilTIAZem 60 MG Tablet PO ×2 (05:48→15:03)
[2024-02-17 05:51] VITALS: BMI 21.6
[2024-02-17] MEDS: Menthol/Lanolin/Calamine/Znox 113 GM Tube 1 APPLIC TOPICAL (09:09)
[2024-02-17] MEDS: Sodium Chloride 1 GM Tablet PO (09:09)
[2024-02-17] MEDS: Ensure Plus High Protein 120 ML LIQUID PO ×3 (09:09→15:03)
[2024-02-17] MEDS: Aspirin 81 MG TAB.CHEW PO (09:09)
[2024-02-17] MEDS: Losartan Potassium 50 MG Tablet PO (09:10)
[2024-02-17] MEDS: Atorvastatin Calcium 40 MG Tablet PO ×2 (09:10→18:14)
[2024-02-17] MEDS: Lansoprazole 15 MG Capsule.DR 30 MG PO (09:10)
[2024-02-17] MEDS: Nystatin Powder 15gm Bottle 1 APPLIC TOPICAL (09:10)
[2024-02-17] MEDS: Atenolol 50 MG Tablet PO (09:11)
[2024-02-17 17:00] VITALS: BP 160/90; PULSE 77
--- NOTE | 2024-02-17 17:00 | NURSING ---
Patient complaining of chest pain and tearful. Dr. Turner aware and new orders received.
[2024-02-17 17:22] VITALS: BP 160/90; PULSE 77
[2024-02-17] MEDS: Nitroglycerin (INPATIENT USE) 0.4 MG TAB.SUBL SL (17:22)
--- NOTE | 2024-02-17 17:23 | EKG12_ITS ---
Test Reason : CP Blood Pressure : */* mmHG Vent. Rate : 88 BPM Atrial Rate : * BPM P-R Int : * ms QRS Dur : 154 ms QT Int : 400 ms P-R-T Axes : * 18 36 degrees QTcB Int : 484 ms Atrial fibrillation with a competing junctional pacemaker with premature ventricular or aberrantly co nducted complexes Right bundle branch block Inferior infarct , age undetermined Anterolateral infarct , possibly acute ACUTE MT / STEMI Abnormal ECG When compared with ECG of 17-Feb-2024 17:14, MANUAL COMPARISON REQUIRED DATA IS UNCONFIRMED Confirmed by MERCEDES CASTILLO, CARRINGTON ([id number]), sports editor GRACIELA MCKINNEY ([id number]) on 02/18/2024 11:07:37 AM Referred By: Cathryn Turner Confirmed By: CARRINGTON LONG MD
[2024-02-17 17:30] VITALS: BP 134/71
[2024-02-17 17:50] LABS: Troponin-I HS 997 pg/mL (3.0-54.0)
[2024-02-17 18:00] VITALS: BP 128/66; PULSE 68; RESP 18; O2SAT 98
[2024-02-17] MEDS: Atenolol 100 MG Tablet PO (18:03)
[2024-02-17] MEDS: Aspirin 81 MG TAB.CHEW 324 MG PO (18:03)
[2024-02-17] MEDS: Mirtazapine 15 MG Tablet 7.5 MG PO (18:03)
[2024-02-17] MEDS: 0.9% Saline Lock 10 ML Syringe IV ×3 (18:15→19:51)
--- NOTE | 2024-02-17 18:21 | CON.PCM.CA_ITS ---
Assessment & Plan Assessment/Plan (1) STEMI (ST elevation myocardial infarction): PLAN: Patient presents with a minimally symptomatic ST elevation myocardial infarction. This is not surprising with her recent presentation with a cerebrovascular accident suggesting vascular disease. * Patient is noted to be a DNR CCA and with her recent cerebrovascular accident status post TNK with evidence of hemorrhagic conversion it was felt that taking her to the cardiac catheterization lab may be fraught. After discussion with the family it was decided to manage her with medical therapy but no invasive approach at this time especially as they did not want to reverse the DNR orders. * Plan will be to treat her with continued aspirin * Will recommend increase the beta-gia to atenolol 75 mg twice a day * Discontinue diltiazem * Will bolus with 1 dose heparin 4000 units only (2) HTN (hypertension): QUALIFIERS: Hypertension type: primary hypertension Qualified Code(s): I10 - Essential (primary) hypertension PLAN: Continue treating hypertension with beta-gia Continue Cozaar Will obtain echocardiogram in a.m. Limited (3) Atrial fibrillation: QUALIFIERS: Atrial fibrillation type: longstanding persistent Q ualified Code(s): I48.11 - Longstanding persistent atrial fibrillation PLAN: Patient has a history of atrial fibrillation. At this time not a candidate for anticoagulation due to fear for hemorrhagic conversion Will rate control at this time (4) History of thrombectomy: PLAN: History of recent thrombectomy will follow-up as per protocol (5) Embolic stroke: QUALIFIERS: Precerebral and cerebral artery: middle cerebral artery Laterality of affected vessel: left Qualified Code(s): I63.412 - Cerebral infarction due to embolism of left middle cerebral artery PLAN: Patient with a recent embolic stroke likely secondary to atrial fibrillation. Will continue management. PLAN: Plan At this point in time the patient appears to be stable pain-free and a repeat EKG demonstrated improvement in the ST elevation and once again after discussion with the patient's 2 relatives on the phone, the hospitalist, the physician in charge of the rehab floor, and the nursing staff, and the medical housekeeper the plan will be to proceed with medical therapy. Patient's DNR status stands. Above also discussed with the interventionalists on-call. All in agreement. Thank you for allowing me to participate in the care of your patient. Please don't hesitate to call if any issues arise. HPI Consult Data Date of Consult: 02/17/24 HPI Narrative HPI Narrative: KELLI BAILEY, is a 88 F who is currently in the rehabilitation unit recovering from a cerebrovascular accident. She apparently was sitting in the chair today and said she felt uncomfortable and held her chest. An EKG was done which demonstrated ST elevation in the anterolateral leads and a STEMI was called. Upon further evaluation it was decided not to pursue an invasive approach to management after discussing with the family, and the hospital team. She has a past medical history of atrial fibrillation, chronic anticoagulation with Eliquis, hypertension, hyperlipidemia, history of breast cancer with lumpectomy and GERD who presented to [facility] on 01/31/2024 with right-sided weakness and aphasia. She apparently had been out of her Eliquis medication and a CTA showed a left MCA occlusion she was given TNK in the left emergency department and transferred to [facility] where she underwent a thrombectomy per interventional neurology. CT scan of the head on 02/01/2024 showed focal areas of hyperintensity measuring 1.9 x 1.3 x 1.6 cm in the caudate head and 2.1 x 1.1 x 2.2 in the lentiform nucleus. There is surrounding edema concerning for intraparenchymal hemorrhage. No significant midline shift however was noted. She also had an echocardiogram performed which demonstrated preserved ejection fraction of 69% with eccentric ventricular hypertrophy normal right ventricular size moderate aortic regurgitation and mild to moderate mitral regurgitation. There was also moderately dilated left atrium. Follow-up CT scan demonstrated evidence of intraparenchymal hemorrhage in the left frontal lobe with surrounding ischemia and edema but this appeared to have stabilized on day 3. 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 She was placed on fluid restriction and was transferred to the inpatient unit at [facility]. Over here she has been made a DNR CCA with no intubation. At the time of evaluation the patient was noted to be hemodynamically stable with no complaints of chest discomfort. Patient does remain in atrial fibrillation and the been concerns about anticoagulation due to the propensity for falls as well as the hemorrhagic components. Thus it had been determined that even the Eliquis should not be started at a lower dose until mid February. [facility] Medical History Osteoarthritis Atrial enlargement, bilateral GERD (gastroesophageal reflux disease) Hyperlipidemia HTN (hypertension) History of breast cancer in female Chronic anticoagulation Atrial fibrillation Home Medications ?Medication ?Instructions ?Recorded ?Last Taken ?Type aspirin 81 mg chewable tablet 81 mg PO DAILY Heart health 02/07/24 Unknown History atenolol 25 mg tablet 25 mg PO BID BP 02/07/24 Unknown History atorvastatin 40 mg tablet 40 mg PO DAILY Cholestrol 02/07/24 02/07/24 History cephalexin 500 mg capsule 500 mg PO Q8H Antibiotic 02/07/24 02/07/24 History diltiazem HCl 60 mg tablet 60 mg PO Q6H BP 02/07/24 02/07/24 12:10 History (Cardizem) losartan 50 mg tablet (Cozaar) 50 mg PO DAILY BP 02/07/24 02/07/24 History pantoprazole 40 mg tablet,delayed 40 mg PO DAILY GERD 02/07/24 02/07/24 History release Allergy/AdvReac Type Severity Reaction Status Date / Time docetaxel AdvReac Severe Severe Verified 02/07/24 16:50 body spasms and rash lisinopril AdvReac Mild cough Verified 02/07/24 16:50 Family History unable to obtain Surgical History unable to obtain Social History household members: family and other details: Her daughter lives lives with her. number of children: 6 Smoking Status: Never smoker alcohol intake: never Physical Exam Const no apparent distress Constitutional Narrative: She is awake but she has no idea where she is and says she has no symptoms. General Appearance: cooperative HEENT Mouth: dry mucous membranes Resp normal respiratory effort and clear to auscultation bilaterally Cardio no rub and no gallops Cardio Narrative: Irregular irregular rhythm. Resting heart rate is at the upper limits of normal today even with the increase in atenolol and I suspect this is secondary to intravascular volume depletion. Rhythm: abnormal rhythm irregularly irregular GI normal to inspection, nondistended, normoactive bowel sounds, soft to palpation and non-tender GI Narrative: No guarding with palpation Extremity no calf tenderness General Extremity: Negative for edema Skin Rashes: no rashes Risk Stratification Risk Stratification Applicable: No Objective Data Vital Signs: Vital Signs Temp Pulse Resp BP Pulse Ox O2 Del Method O2 Flow Rate 98.2 F 68 18 128/66 H 98 Nasal Cannula 2 02/17/24 05:47 02/17/24 18:00 02/17/24 18:00 02/17/24 18:00 02/17/24 18:00 02/17/24 18:00 02/17/24 18:00 Oxygen Flow Rate (L/min) 2 Oxygen Delivery Method Nasal Cannula Weight: 129 lb 10.109 oz Body Mass Index (BMI) 21.6 Intake & Output: Intake and Output for Last 24 Hours 02/15/24 02/16/24 02/17/24 23:59 23:59 23:59 Intake Total 440 / 440 940 / 940 540 / 540 Output Total 300 / 300 600 / 600 200 / 200 Balance 140 / 140 340 / 340 340 / 340 Lab / Micro Data 02/11/24 05:06 02/11/24 05:06 Labs: Laboratory Results - last 24 hr 02/17/24 17:25: Troponin I High Sens 997 H* Cardiology Labs/Tests Rhythm: EKG: ECHO: Stress Test: Cardiac Cath: PCI: CT Surgery: Holter monitor: EPS: PPM: CXR: Chest CT Scan:
[2024-02-17] MEDS: Heparin 10,000 UNITS/10 ML Vial 4000 UNITS IV (19:44)
[2024-02-17 19:45] VITALS: BP 134/75; PULSE 87; RESP 16; TEMP 36.6; O2SAT 98
[2024-02-17 20:07] LABS: Troponin-I HS 5756 pg/mL (3.0-54.0)
--- NOTE | 2024-02-17 23:49 | NURSING ---
2015 lab phones with critical troponin level of 5, 910
--- NOTE | 2024-02-17 23:49 | NURSING ---
[address] Mason to update on critical troponin level and family's request to not medically intervene. New orders received.
--- NOTE | 2024-02-17 23:50 | NURSING ---
2027 Daughter, Marcela updated on troponin level and new orders from Dr. Mason. Daughter voiced understanding of same and thanked RN.
--- NOTE | 2024-02-17 23:51 | NURSING ---
2049 Son-in-law updates this RN that patient seems restless and in pain. Requests PRN Morphine for patient.
--- NOTE | 2024-02-17 23:52 | NURSING ---
2058 This RN enters patient's room to assess patient. Patient unresponsive and without vital signs.
--- NOTE | 2024-02-17 23:54 | NURSING ---
[address] Cortez of patient's . Patient's daughter, Marcela notifies RN that she will contact all family members regarding her mother's .
--- NOTE | 2024-02-17 23:55 | NURSING ---
2114 Dr. Turner is notified of patient's . Family remains at bedside and is discussing arrangements.
--- NOTE | 2024-02-17 23:56 | NURSING ---
4774 Family is unsure at this time of where they would like the body to be sent. Family states that they will notify the rehab unit tomorrow after further discussion.
--- NOTE | 2024-02-17 23:57 | NURSING ---
2200 Postmortem care provided.
--- NOTE | 2024-02-17 23:57 | NURSING ---
5980 addendum: All patient belongings sent home with daughterMarcela.
--- NOTE | 2024-02-26 10:31 | PCM.DC.SUM ---
Providers Date of Admission: 02/07/24 Date of Discharge: 02/17/24 Primary Care Physician: NIURKA Torres Consultations 02/17/24 17:51 Consult: Cardiology Routine Consulting Provider: Rad Mason Reason for Consult: chest pain EMERGENT Consult: Yes MD Notified: Yes Date Notified: 02/17/24 Time Notified: 17:51 Method of Notification: Verbal Reason For Visit: CVS Diagnosis Discharge Diagnosis (1) Debility: Status: Acute Code(s): R53.81 - Other malaise (2) Embolic stroke: Status: Acute Code(s): I63.9 - Cerebral infarction, unspecified Qualifiers: Precerebral and cerebral artery: middle cerebral artery Laterality of affected vessel: left Qualified Code(s): I63.412 - Cerebral infarction due to embolism of left middle cerebral artery (3) Atrial fibrillation: Status: Acute Code(s): I48.91 - Unspecified atrial fibrillation Qualifiers: Atrial fibrillation type: longstanding persistent Qualified Code(s): I48.11 - Longstanding persistent atrial fibrillation Plan: Noncompliant with anticoagulation with Eliquis. (4) History of thrombectomy: Status: Acute Code(s): Z98.890 - Other specified postprocedural states; Z86.718 - Personal history of other venous thrombosis and embolism (5) STEMI (ST elevation myocardial infarction): Status: Acute Code(s): I21.3 - ST elevation (STEMI) myocardial infarction of unspecified site Qualifiers: Involved coronary artery: unspecified coronary artery Qualified Code(s): I21.3 - ST elevation (STEMI) myocardial infarction of unspecified site Plan: 02/17/2024 (6) Aspiration pneumonia: Status: Acute Code(s): J69.0 - Pneumonitis due to inhalation of food and vomit Qualifiers: Aspiration pneumonia type: unspecified Laterality: right Lung location: lower lobe of lung Qualified Code(s): J69.0 - Pneumonitis due to inhalation of food and vomit (7) Hyponatremia: Status: Acute Code(s): E87.1 - Hypo-osmolality and hyponatremia (8) Severe aphasia: Status: Acute Code(s): R47.01 - Aphasia (9) Dysarthria: Status: Acute Code(s): R47.1 - Dysarthria and anarthria (10) HTN (hypertension): Status: Chronic Code(s): I10 - Essential (primary) hypertension Qualifiers: Hypertension type: primary hypertension Qualified Code(s): I10 - Essential (primary) hypertension Plan Marika Bailey had an STEMI on 02/17/24. she was seen by Cardiology and due to recent large embolic CVA she was deemed not to be a candidate for cardiac cath due to significantly increased risk for hemorrhagic transformation with heparin infusion used for cardiac catheterization. She was treated medically. She passed on 02/17/24. Family was present in the room. Medications at Discharge Home Medications aspirin 81 mg chewable tablet 81 mg PO DAILY Heart health 02/07/24 atenolol 25 mg tablet 25 mg PO BID BP 02/07/24 atorvastatin 40 mg tablet 40 mg PO DAILY Cholestrol 02/07/24 cephalexin 500 mg capsule 500 mg PO Q8H Antibiotic 02/07/24 diltiazem HCl 60 mg tablet (Cardizem) 60 mg PO Q6H BP 02/07/24 losartan 50 mg tablet (Cozaar) 50 mg PO DAILY BP 02/07/24 pantoprazole 40 mg tablet,delayed release 40 mg PO DAILY GERD 02/07/24 Hospital Course Operations None Procedures None Summary of Care Provided Minutes Spent on Discharge: 30 Hospital Course: MARIKA BAILEY was an 88-year-old female with a past medical history of atrial fibrillation, chronic anticoagulation with Eliquis (recently noncompliant with Eliquis), hypertension, hyperlipidemia, history of breast cancer with lumpectomy and GERD who presented to [facility] on 01/31/2024 with right-sided weakness and aphasia. CT brain was negative for any acute findings. CTA showed a left MCA M1 occlusion. TNK was administered in the emergency department and she was transferred to [facility] where she underwent thrombectomy. Transthoracic echocardiogram showed a normal-sized left ventricle with mild septal thickening. EF was 69%. CTA of the head on 02/02/2024 showed intraparenchymal hemorrhages of the left frontal lobe with surrounding edema secondary to hemorrhagic transformation. Repeat CT head 1 day later showed the hemorrhagic transformation to be stable. She was transferred to the acute inpatient rehab unit at [facility] on 02/07/2024 for 3 hours of therapy daily to restore function/independence at or near her level prior to the CVA. Neurology recommended holding chronic anticoagulation for 1 month and to restart on 03/02/2024. Marika made progress with therapy however, on `02/17/24 in the afternoon she developed substernal chest pain and an EKG showed an ST elevation DE. Consult was obtained with Dr. Mason from [facility]. He felt that in light of the hemorrhagic conversion following TNK that she would be high risk for intracerebral hemorrhage if taken to the [facility]. He discussed this with her family and the decision was made to manage her medically. CODE STATUS was DNR CC arrest and this was entered into the chart prior to the DE. She was kept on aspirin and atenolol was increased to 75 mg twice a day. Diltiazem was discontinued. She received 1 dose of heparin 4000 units IV. Later that evening she had severe CP again and she unfortunately . Family was present in the room at the time of her passing. I was not present at the time of her and she was pronounced by Dr. Cortez at 2109 on 02/17/24. Physical Exam Narrative I was not present at the time of her . At the time she was seen by cardiology she was Alert and in NAD. She had normal respiratory effort and her lungs are clear to auscultation. The heart had an irregular irregular rhythm with no rub and no gallops. Resting heart rate was in the upper limits of normal. The abdomen was soft, nondistended with normal active bowel sounds. She had no peripheral edema and no calf tenderness. Weight / BMI Weight Weight: 129 lb 10.109 oz Body Mass Index (BMI) 21.6 ABG / Lab / Microbiology Data 02/11/24 05:06 02/11/24 05:06 Microbiology: Microbiology 02/08/24 12:02 Blood Culture (Wb) - Anticubital Right Blood Culture - Final No growth in 5 days. 02/10/24 14:20 Nasal Secretion MRSA (PCR) - Final 02/08/24 12:43 Mucosa - Nose Respiratory Panel (PCR) - Final D/C Instructions DC O2, CPAP, BIPAP Needs Home O2 Discharge instructions: No Meaningful Use Info Meaningful Use Meaningful Use Diagnoses (Choose all that apply): AMI AMI/Post PCI/Angioplasty Aspirin given w/in 24hrs of arrival?: Yes ASA at discharge?: Yes Antiplatelet Therapy at Discharge:: Yes Statins at discharge?: Yes Jalen/ARB at discharge?: No Reason Jalen/ARB not ordered:: Not indicated Beta David at discharge?: Yes Done w/ Acute DE measure.: Yes Documented LVEF (%): 69 Ischemic Stroke Statin Dosing Therapy Reference: STATIN DOSE THERAPY REFERENCE: * Patients > 75 years receive moderate or high dose statin therapy. * Patients 75 years or YOUNGER should receive HIGH intensity statin dose unless contraindicated. You will be required to document reason for non-treatment if statin daily dose does not meet guidelines. HIGH DOSE STATIN THERAPY DAILY Atorvastatin > than or = to 40 mg Rosuvastatin > than or = to 20 mg Amlodipine + Atorvastatin > than or = to 2.5/40 mg Ezetimibe + Simvastatin 10/80 mg Simvastatin 80mg Discharge Plan Admission Admit Date/Time: 02/07/24 14:46 Attending Provider: Cathryn Turner Primary Care Provider: Cathryn Aguirre NP Consulting Providers: Rad Mason Disposition Disposition (needs filled in before D/C Order can be placed): Charges/Coding Visit Charges Inpatient E&M: 05139 Disch Hosp
== END 2024-02-17 23:25 | DRG 56 ==
PROVIDERS: Admitting Provider Internal Medicine; PCP Nurse Practitioner; Referring Provider Internal Medicine; Visit Provider Internal Medicine
DX: I69.320 Aphasia following cerebral infarction (principal); J69.0 Pneumonitis due to inhalation of food and vomit; I21.3 ST elevation (STEMI) myocardial infarction of unspecified site; E22.2 Syndrome of inappropriate secretion of antidiuretic hormone; I48.11 Longstanding persistent atrial fibrillation; Z66 Do not resuscitate; I27.20 Pulmonary hypertension, unspecified; I10 Essential (primary) hypertension; I34.0 Nonrheumatic mitral (valve) insufficiency; I69.392 Facial weakness following cerebral infarction; E78.5 Hyperlipidemia, unspecified; K21.9 Gastro-esophageal reflux disease without esophagitis; I69.322 Dysarthria following cerebral infarction; R15.9 Full incontinence of feces; Z79.01 Long term (current) use of anticoagulants; Z79.82 Long term (current) use of aspirin; Z79.899 Other long term (current) drug therapy; T45.516A Underdosing of anticoagulants, initial encounter; Z91.148 Patient's other noncompliance with medication regimen for other reason
CPT/HCPCS: 36415; 71046; 73100; 80048; 80053; 80202; 81001; 83735; 84100; 84484; 85025; 87040; 87633; 87641; 92507; 92523; 92610; 93005; 94668; 97110; 97112; 97116; 97162; 97166; 97530; 97535; J2185; A4216